=== PATIENT | male | born 1960 | race Caucasian/White ===

== ENCOUNTER 2019-07-11 16:17 | Inpatient (IN) | payer SELFPAY ==
[2019-07-11] MEDS ORDERED: IPRATROPIUM/ALBUTEROL 0.5-2.5 MG/3 ML AMPUL NEB ONE (16:40)
[2019-07-11] MEDS ORDERED: NORMAL SALINE 1000 ML 1,000 ML IV ONE (16:47)
[2019-07-11 17:06] LABS: ABSOLUTE BASOPHILS # (AUTO) 0.1 10^3/uL (0.0-0.2); ABSOLUTE EOSINOPHILS # (AUTO) 0.1 10^3/uL (0.0-0.6); ABSOLUTE LYMPHOCYTES (AUTO) 1.6 10^3/uL (0.5-4.7); ABSOLUTE MONOCYTES (AUTO) 0.7 10^3/uL (0.1-1.4); ABSOLUTE NEUT (AUTO) 9.8 10^3/uL (1.7-8.2); BASOPHILS % (AUTO) 0.5 % (0-2); EOSINOPHILS % (AUTO) 0.7 % (0-6); HEMATOCRIT 29.8 % (37.9-51.0); HEMOGLOBIN 9.6 g/dL (13.5-17.0); LYMPHOCYTES % (AUTO) 12.9 % (13-45); MEAN CORPUSCULAR HEMOGLOBIN 27.8 pg (27.0-33.4); MEAN CORPUSCULAR HGB CONC 32.2 g/dL (32.0-36.0); MEAN CORPUSCULAR VOLUME 87 fl (80-97); MONOCYTES % (AUTO) 5.4 % (3-13); PLATELET COUNT 260 10^3/uL (150-450); RED BLOOD COUNT 3.44 10^6/uL (4.35-5.55); RED CELL DISTRIBUTION WIDTH 18.2 % (11.5-14.0); SEGMENTED NEUTROPHILS % (AUTO) 80.5 % (42-78); TOTAL CELLS COUNTED % (AUTO) 100 %; WHITE BLOOD COUNT 12.1 10^3/uL (4.0-10.5)
[2019-07-11] MEDS ORDERED: CEFEPIME 2 GM/D5W RTU 2 GM/50 ML RTUPB IV ONE (17:07)
[2019-07-11] MEDS ORDERED: DEXTROSE 5%-WATER 250 ML with NOREPINEPHRINE BITARTRATE 4 MG IV PRN ×2 (17:07)
[2019-07-11] MEDS ORDERED: VANCOMYCIN HCL INJ 1000 MG VIAL IV ONE (17:07)
[2019-07-11 17:19] LABS: ARTERIAL BLOOD BASE EXCESS -2.3 mmol/L; ARTERIAL BLOOD FIO2 85%; ARTERIAL BLOOD H2CO3 1.31 mmol/L (1.05-1.35); ARTERIAL BLOOD HCO3 23.3 mmol/L (20-24); ARTERIAL BLOOD O2 SATURATION 83.1 % (94-98); ARTERIAL BLOOD PCO2 43.6 mmHg (35-45); ARTERIAL BLOOD PH 7.35 (7.35-7.45); ARTERIAL BLOOD PO2 49.7 mmHg (80-100); ARTERIAL BLOOD TOTAL CO2 24.7 mmol/L (23-27)
[2019-07-11 17:21] LABS: INTERNATIONAL RATION (INR) 0.98
[2019-07-11] MEDS ORDERED: LIDOCAINE 1% INJ-PF (10 MG/ML) 30 ML SDV ONE (17:23)
[2019-07-11] MEDS ORDERED: LIDOCAINE 1% INJ (10 MG/ML) 10 ML MDV INJ ONE (17:31)
--- NOTE | 2019-07-11 17:33 | RADIOLOGY REPORT (SQ) ---
EXAM DESCRIPTION: CHEST SINGLE VIEW COMPLETED DATE/TIME: 07/11/2019 4:59 pm REASON FOR STUDY: hypoxia COMPARISON: None. EXAM PARAMETERS: NUMBER OF VIEWS: One view. TECHNIQUE: Single frontal radiographic view of the chest acquired. RADIATION DOSE: NA LIMITATIONS: None. FINDINGS: LUNGS AND PLEURA: There is increased opacification in the left base. Cannot exclude mild pulmonary edema. MEDIASTINUM AND HILAR STRUCTURES: No masses. Contour normal. HEART AND VASCULAR STRUCTURES: Heart size is borderline. BONES: No acute findings. HARDWARE: None in the chest. OTHER: No other significant finding. IMPRESSION: Borderline cardiomegaly. Cannot exclude mild pulmonary edema. Likely left lower lobe p neumonia. TECHNICAL DOCUMENTATION: JOB ID: [id number] [employer]- All Rights Reserved Reading location - IP/workstation name: [email or web address]
[2019-07-11 17:34] LABS: ALBUMIN 3.1 g/dL (3.5-5.0); ALKALINE PHOSPHATASE 105 U/L (38-126); ANION GAP 9 (5-19); ASPARTATE AMINO TRANSFERASE 64 U/L (17-59); BILIRUBIN,DIRECT 0.3 mg/dL (0.0-0.4); BILIRUBIN,TOTAL 0.4 mg/dL (0.2-1.3); BLOOD UREA NITROGEN 54 mg/dL (7-20); CALCIUM 8.4 mg/dL (8.4-10.2); CARBON DIOXIDE 26 mmol/L (22-30); CHLORIDE 102 mmol/L (98-107); GLUCOSE 128 mg/dL (75-110); POTASSIUM 5.5 mmol/L (3.6-5.0)
[2019-07-11] MEDS ORDERED: ATROPINE SULFATE INJ 1 MG/1 ML VIAL IV ONE (17:37)
[2019-07-11 17:38] LABS: DIGOXIN < 0.40 ng/mL (0.8-2.0)
--- NOTE | 2019-07-11 17:43 | Operative Report ---
Nonrecallable Operative Report DATE OF SURGERY: 07/11/19 PREOPERATIVE DIAGNOSIS: need IV access. patient on Eliquis POSTOPERATIVE DIAGNOSIS: same OPERATION: right common femoral vein triple lumen catheter SURGEON: KALE ALLISON ANESTHESIA: Local TISSUE REMOVED OR ALTERED: n/a COMPLICATIONS: none ESTIMATED BLOOD LOSS: < 2 mL INTRAOPERATIVE FINDINGS: as above PROCEDURE: see dictation
--- NOTE | 2019-07-11 17:44 | ER Document Report ---
ED General - General Chief Complaint: Respiratory Distress Stated Complaint: WEAKNESS Time Seen by Provider: 07/11/19 16:32 TRAVEL OUTSIDE OF THE [place] IN LAST 30 DAYS: No - HPI Notes: Patient is a 4-year-old male brought into the emergency department for evaluation by daughter. She has been his primary caregiver after he was discharged from the hospital in [place]. Evidently he was admitted for MRSA bacteremia. He was in the [facility], then moved back to [place] with her on Thursday. He has had decreased levels of interaction. He has been having shaking all over, similar episodes he has had in the past while hospitalized, but more frequently. She states he has been taking his medications as prescribed. He does not believe he has taken any extra. He has had a markedly diminished appetite, diminished oral intake. He has been coughing somewhat. - Related Data Allergies/Adverse Reactions: No Known Allergies Allergy (Unverified 12/15/14 09:07) Home Medications: Percocet, albuterol, amiodarone, Eliquis, Symbicort, chlorpromazine, digoxin, docusate, ferrous sulfate, folate, Neurontin, losartan, multivitamin, Protonix, thiamine, venlafaxine, verapamil Past Medical History - General Information source: Patient, Relative, Outside Facility Records - Social History Smoking Status: Current Every Day Smoker Frequency of alcohol use: Former drinker Family History: Reviewed & Not Pertinent Patient has suicidal ideation: No Patient has homicidal ideation: No - Past Medical History Cardiac Medical History: Reports: Hx Atrial Fibrillation, Hx Hypertension Pulmonary Medical History: Reports: Hx COPD Renal/ Medical History: Denies: Hx Peritoneal Dialysis Past Surgical History: Reports: Hx Orthopedic Surgery - Immunizations Hx Diphtheria, Pertussis, Tetanus Vaccination: Yes Review of Systems - Review of Systems Constitutional: See HPI EENT: No symptoms reported Cardiovascular: No symptoms reported Respiratory: No symptoms reported Gastrointestinal: No symptoms reported Genitourinary: No symptoms reported Musculoskeletal: No symptoms reported Skin: No symptoms reported Neurological/Psychological: No symptoms reported Physical Exam - Vital signs Vitals: Resp Pulse Ox 20 80 L 07/11/19 16:33 07/11/19 16:33 - Notes Notes: Is a 58-year-old male who appears older than his stated age in a mild amount of distress. He is mildly tachypneic, BiPAP in place. Has never spiked any traumatic. Pupils are equal round, reactive to light. Oral mucosa is moist. Neck is supple without meningismus. Heart is irregularly irregular and markedly bradycardic. Lungs reveal moderate expiratory wheezing with prolonged expiratory phase. Abdomen soft, nontender, normal active bowel sounds. Skin is cool and mildly diaphoretic. Extremities without cyanosis or clubbing. No posterior calf tenderness. Patient will open eyes to painful stimuli, will begrudgingly follow commands. He actively resists me opening his eyes for examination. Course - Re-evaluation Re-evalutation: 07/11/19 17:43 Patient presents emergency department for evaluation. On arrival he was hypotensive, bradycardic. He would not answer my questions. He was markedly hypoxic, BiPAP was placed. IV fluids, laboratory investigations ordered. Given his MRSA bacteremia history as well as hypertension, I was concerned about the possibility of a significant sepsis event. ABG was ordered. He was given IV cefepime, vancomycin. Multiple large-bore IVs were placed, decision was made to place central line for possible pressor therapy. Given his Eliquis therapy, I did not feel comfortable placing central line in this patient in the IJ or subclavian region. I did contact surgery. Dr. Alvarez came to the department and, in fact placed a femoral line. Patient is currently normotensive. His heart rate remains between 35 and 50, but his mental status has improved. He is following directions. We will continue to monitor. 07/11/19 18:18 Patient remains significantly bradycardic. He is improving in regards to his mental status. I am not inclined to further medicated in regards to this. Certainly his digoxin level is low. As his amiodarone wears off, I suspect that this will improve. He is currently not on pressors and his blood pressure is 104/67. He is been treated with cefepime and vancomycin. I spoke with , will admit the patient to the unit. - Vital Signs Vital signs: Temp Pulse Resp BP Pulse Ox 16 104/64 92 07/11/19 18:06 07/11/19 18:06 07/11/19 18:06 - Laboratory Result Diagrams: 07/11/19 16:49 07/11/19 16:49 Laboratory results interpreted by me: 08/19/19 08/19/19 08/19/19 16:49 16:49 16:49 WBC 12.1 H RBC 3.44 L Hgb 9.6 L Hct 29.8 L RDW 18.2 H Seg Neutrophils % 80.5 H Lymphocytes % 12.9 L Absolute Neutrophils 9.8 H ABG pO2 49.7 L ABG O2 Saturation 83.1 L Sodium 136.5 L Potassium 5.5 H BUN 54 H Creatinine 2.72 H Est GFR ( Amer) 29 L Est GFR (Non-Af Amer) 24 L Glucose 128 H AST 64 H Total Protein 6.0 L Albumin 3.1 L Digoxin < 0.40 L - Diagnostic Test Radiology reviewed: Reports reviewed Radiology results interpreted by me: 07/11/19 17:45 Chest X-Ray 07/11/19 16:39 IMPRESSION: Borderline cardiomegaly. Cannot exclude mild pulmonary edema. Likely left lower lobe pneumonia. - EKG Interpretation by Me Additional EKG results interpreted by me: 07/11/19 17:45 Atrial fibrillation with a rate of 42 bpm. Normal axis and intervals, nonspecific ST changes, but no acute changes concerning for ischemia or infarction. No old studies available for comparison. Critical Care Note - Critical Care Note Total time excluding time spent on procedures (mins): 30 Discharge - Discharge Clinical Impression: Hyperkalemia, Bradycardia, Hypoxemia Pneumonia Qualifiers: Pneumonia type: due to unspecified organism Laterality: unspecified laterality Sepsis Qualifiers: Sepsis type: sepsis due to unspecified organism Sepsis acute organ dysfunction status: unspecified Qualified Code(s): A41.9 - Sepsis, unspecified organism Condition: Stable Disposition: ADMITTED INPATIENT Admitting Provider: Dr. Moreno Unit Admitted: ICU
--- NOTE | 2019-07-11 17:45 | Progress Note ---
Provider Note Provider Note: S: tachypneim male on Eliquis in need if access for meds and fluids O; Tachypnein chest: CTA Heart: RRR Abdomen: soft A/ Tachypnea Need IV access P/ Placement of CVL via right common femoral vein under local. Consent obtained.
--- NOTE | 2019-07-11 17:55 | OPERATIVE REPORT E ---
Operative Report NAME: RUMA VAUGHAN : 1960 AGE: 58Y DATE OF SURGERY: 07/11/2019 ROOM: PREOPERATIVE DIAGNOSIS: NEED INTRAVENOUS ACCESS. POSTOPERATIVE DIAGNOSIS: NEED INTRAVENOUS ACCESS. PATIENT ON ELIQUIS. OPERATION: PLACEMENT OF RIGHT COMMON FEMORAL VEIN TRIPLE LUMEN CENTRAL VENOUS LINE. SURGEON: KALE ALLISON M.D. ANESTHESIA: General mask with 1% lidocaine with epinephrine. COMPLICATIONS: None. INDICATION/FINDINGS: This is a 58-year-old male with a history of severe COPD, in need of IV access for administration of medications and drugs. The patient is currently on Eliquis. Decision was made to place a right common femoral vein central venous line because of the use of Eliquis. PROCEDURE: The procedure was done in the emergency room. The patient was placed in supine position. The right groin was shaved and prepped and draped in the usual sterile fashion. The area just medial to the right common femoral artery was prepared, infiltrated with lidocaine. The femoral vein was then punctured with a 16 gauge needle without difficulty, followed by a guidewire inserted through the vein. The needle was removed. The insertion point of the guidewire was enlarged with a #11 blade and tissue dilator which was then removed. The triple lumen catheter was inserted over the guidewire in the common femoral vein and iliac vein without difficulty. The guidewire was removed. The port was then aspirated and flushed with normal saline without difficulty. The catheter was secured to the skin with silk sutures. Sterile dressings were applied. The patient tolerated the procedure well. DICTATING PHYSICIAN: KALE ALLISON M.D. [id number] PHY#: [id number] ID: [id number] JOB#: [id number] ACCT: [id number] cc:KALE ALLISON M.D. > MTDD
[2019-07-11 18:32] LABS: APPEARANCE,URINE CLEAR; BILIRUBIN,URINE NEGATIVE (NEGATIVE); COLOR,URINE YELLOW; GLUCOSE, URINE NEGATIVE (NEGATIVE); KETONES,URINE NEGATIVE (NEGATIVE); LEUKOCYTE ESTERASE,URINE NEGATIVE (NEGATIVE); NITRITE,URINE NEGATIVE (NEGATIVE); PROTEIN,URINE NEGATIVE (NEGATIVE); URINE SPECIFIC GRAVITY 1.019; UROBILINOGEN,URINE NEGATIVE mg/dL (<2.0)
[2019-07-11 19:47] LABS: ARTERIAL BLOOD BASE EXCESS -7.2 mmol/L; ARTERIAL BLOOD HCO3 19.9 mmol/L (20-24); ARTERIAL BLOOD PCO2 46.4 mmHg (35-45); ARTERIAL BLOOD PH 7.25 (7.35-7.45); ARTERIAL BLOOD PO2 69.2 mmHg (80-100); ARTERIAL BLOOD TOTAL CO2 21.3 mmol/L (23-27)
[2019-07-11 19:49] LABS: ARTERIAL BLOOD FIO2 100%
[2019-07-11] MEDS ORDERED: GLUCAGON,HUMAN RECOMB 1 MG INJ SUBCUT PRN (20:04)
[2019-07-11] MEDS ORDERED: CALCIUM GLUCONATE 1,000 MG in DEXTROSE 5%-WATER 50 ML IV ONE (20:04)
[2019-07-11] MEDS ORDERED: DEXTROSE 40% GEL 15 GM TUBE PO PRN ×2 (20:04)
[2019-07-11] MEDS ORDERED: DEXTROSE 50%-WATER 25 GM/50 ML DISP.SYRIN IV PRN ×2 (20:04)
[2019-07-11] MEDS ORDERED: ACETAMINOPHEN 325 MG TABLET PO PRN (20:04)
[2019-07-11] MEDS ORDERED: ALBUTEROL SULFATE 0.083% NEB 2.5 MG/3 ML AMPUL NEB PRN (20:04)
[2019-07-11] MEDS ORDERED: VANCOMYCIN HCL 0 MG in DEXTROSE 5%-WATER 250 ML IV NR (20:15)
--- NOTE | 2019-07-11 20:15 | PDOC H&P ---
History of Present Illness Admission Date/PCP: 07/11/19 18:24 Patient complains of: Lethargy and shortness of breath History of Present Illness: RUMA VAUGHAN is a 58 year old male who was brought into the ER by his daughter after being discharged from hospital in [place] about 3 days ago presented to the ER complaining of feeling generalized weakness and some shortness of breath. Patient is on BiPAP when I saw him in the ED. Patient unable to give me a good history as he is very lethargic and somnolent. Spoke with daughter at bedside, who tells me that her father was admitted at the [facility] in [place], [place], for the last 2 months. States that he had an MRSA bacteremia for which they were treating him. States that it father lives in [place] but he was discharged from the hospital 3 days ago on 08 July and then came down to live with her in [place]. States that at home he was walking around and going about doing his daily chores but then at the hospital he was noted to have these shakings of his arms and legs which were not considered seizures. She had asked the hospital what it is but they were unable to tell him. States that last night he was also having slight tremors of his arms and legs. And then this morning he fell twice and his daughter does not know why. Then he was also sitting the chair again after taking all his morning medication when he started to fall again and this is when she got worried and decided to bring him to the ER for evaluation. Per daughter he never had LOC or hit his head. He has not had much complaint to the daughter in the last 3 days that has been around but gradually has been having decreased appetite and developing some shortness of breath. Per daughter he has been taking medications that was given to him after discharge from the hospital-he is also written with his pain on the pill bottle, he attempted taking a day- unfortunately he has 2 separate pill bottles of losartan and they both say once a day so I am not clear if he is taking them both are not. Also his Coreg bottle is written to take 3 times a day although the prescription itself states it is to be taken twice a day. In the ED he was found to have a white count of 12,000, low hemoglobin, oxygen saturation of 80% and a low blood pressure of systolic 79. Chest x-ray showing suspected pneumonia. Hospitalist were consulted for admission. Past Medical History Cardiac Medical History: Reports: Atrial Fibrillation, Hypertension Pulmonary Medical History: Reports: Chronic Obstructive Pulmonary Disease (COPD) Past Surgical History Past Surgical History: Reports: Orthopedic Surgery Social History Smoking Status: Current Every Day Smoker - Advance Directive Resuscitation Status: Full Code Family History Family History: Reviewed & Not Pertinent Parental Family History Reviewed: Yes Children Family History Reviewed: Unknown Sibling(s) Family History Reviewed.: Unknown Medication/Allergy Allergies/Adverse Reactions: No Known Allergies Allergy (Unverified 12/15/14 09:07) Review of Systems All systems: reviewed and no additional remarkable complaints except as stated Constitutional: ABSENT: chills, fever(s) Eyes: ABSENT: visual disturbances Ears: ABSENT: hearing changes Nose, Mouth, and Throat: ABSENT: mouth pain Cardiovascular: ABSENT: chest pain, edema Respiratory: PRESENT: dyspnea. ABSENT: cough Gastrointestinal: ABSENT: abdominal pain, nausea, vomiting Neurological: PRESENT: frequent falls. ABSENT: focal weakness Endocrine: ABSENT: polyuria Physical Exam Vital Signs: Temp Pulse Resp BP Pulse Ox 16 104/64 92 07/11/19 18:06 07/11/19 18:06 07/11/19 18:06 Intake & Output 07/10/19 07/11/19 07/12/19 06:59 06:59 06:59 Intake Total 1050 Balance 1050 Weight 130 lb 4.338 oz General appearance: PRESENT: mild distress Head exam: PRESENT: atraumatic, normocephalic Eye exam: PRESENT: EOMI. ABSENT: conjunctival injection, scleral icterus Mouth exam: PRESENT: other - On BiPAP and unable to evaluate Neck exam: ABSENT: tracheal deviation Respiratory exam: PRESENT: accessory muscle use, decreased breath sounds - Decreased breath sounds bilaterally mostly of the left, rhonchi, tachypnea Cardiovascular exam: PRESENT: +S1, +S2 Pulses: PRESENT: +2 pedal pulses bilateral GI/Abdominal exam: PRESENT: normal bowel sounds, soft. ABSENT: tenderness Extremities exam: ABSENT: pedal edema Neurological exam: PRESENT: other - Somnolent-but arousable-does answer questions but then closes eyes again. Follow commands for short time-unable to evaluate cranial nerve due to his BiPAP. Skin exam: PRESENT: dry, warm Results Laboratory Results: 07/11/19 16:49 07/11/19 16:49 08/07/11/19 07/11/19 16:49 16:49 16:49 WBC 12.1 H RBC 3.44 L Hgb 9.6 L Hct 29.8 L MCV 87 MCH 27.8 MCHC 32.2 RDW 18.2 H Plt Count 260 Seg Neutrophils % 80.5 H Lymphocytes % 12.9 L Monocytes % 5.4 Eosinophils % 0.7 Basophils % 0.5 Absolute Neutrophils 9.8 H Absolute Lymphocytes 1.6 Absolute Monocytes 0.7 Absolute Eosinophils 0.1 Absolute Basophils 0.1 Carbonic Acid HCO3/H2CO3 Ratio ABG pH ABG pCO2 ABG pO2 ABG HCO3 ABG O2 Saturation ABG Base Excess FiO2 Sodium 136.5 L Potassium 5.5 H Chloride 102 Carbon Dioxide 26 Anion Gap 9 BUN 54 H Creatinine 2.72 H Est GFR ( Amer) 29 L Est GFR (Non-Af Amer) 24 L Glucose 128 H Lactic Acid 1.2 Calcium 8.4 Total Bilirubin 0.4 AST 64 H Alkaline Phosphatase 105 Total Protein 6.0 L Albumin 3.1 L Urine Color Urine Appearance Urine pH Ur Specific [place] Urine Protein Urine Glucose (UA) Urine Ketones Urine Blood Urine Nitrite Ur Leukocyte Esterase Urine WBC (Auto) Urine RBC (Auto) 07/11/19 07/11/19 16:49 17:54 WBC RBC Hgb Hct MCV MCH MCHC RDW Plt Count Seg Neutrophils % Lymphocytes % Monocytes % Eosinophils % Basophils % Absolute Neutrophils Absolute Lymphocytes Absolute Monocytes Absolute Eosinophils Absolute Basophils Carbonic Acid 1.31 HCO3/H2CO3 Ratio 17:1 ABG pH 7.35 ABG pCO2 43.6 ABG pO2 49.7 L ABG HCO3 23.3 ABG O2 Saturation 83.1 L ABG Base Excess -2.3 FiO2 85% Sodium Potassium Chloride Carbon Dioxide Anion Gap BUN Creatinine Est GFR ( Amer) Est GFR (Non-Af Amer) Glucose Lactic Acid Calcium Total Bilirubin AST Alkaline Phosphatase Total Protein Albumin Urine Color YELLOW Urine Appearance CLEAR Urine pH 5.0 Ur Specific [place] 1.019 Urine Protein NEGATIVE Urine Glucose (UA) NEGATIVE Urine Ketones NEGATIVE Urine Blood NEGATIVE Urine Nitrite NEGATIVE Ur Leukocyte Esterase NEGATIVE Urine WBC (Auto) 1 Urine RBC (Auto) 0 07/11/19 16:49 Troponin I 0.012 Impressions: Chest X-Ray 07/11/19 16:39 IMPRESSION: Borderline cardiomegaly. Cannot exclude mild pulmonary edema. Likely left lower lobe pneumonia. Assessment and Plan - Diagnosis (1) Sepsis Qualifiers: Sepsis type: sepsis due to unspecified organism Sepsis acute organ dysfunction status: unspecified Qualified Code(s): A41.9 - Sepsis, unspecified organism Is this a current diagnosis for this admission?: Yes (2) Acute respiratory failure with hypoxia Is this a current diagnosis for this admission?: Yes (3) Hypertension Is this a current diagnosis for this admission?: Yes (4) GERD (gastroesophageal reflux disease) Is this a current diagnosis for this admission?: Yes (5) Bradycardia Is this a current diagnosis for this admission?: Yes (6) Pneumonia Qualifiers: Pneumonia type: due to unspecified organism Laterality: unspecified laterality Is this a current diagnosis for this admission?: Yes (7) CECILY (acute kidney injury) Is this a current diagnosis for this admission?: Yes - Time Time Spent with patient: 35 or more minutes - Inpatient Certification Based on my medical assessment, after consideration of the patient's comorbidities, presenting symptoms, or acuity I expect that the services needed warrant INPATIENT care.: Yes I certify that my determination is in accordance with my understanding of Medic are's requirements for reasonable and necessary INPATIENT services [42 CFR 412.3e].: Yes Medical Necessity: Failure to Improve With Outpatient Therapy, Significant Comorbidiites Make Outpatient Treatment Too Risky, Need For IV Fluids, Need For Continuous Telemetry Monitoring, Need for IV Antibiotics, Risk of Complication if Not Cared For in Hospital - Plan Summary Plan Summary: Acute respiratory failure with hypoxia-his oxygen saturation on arrival was 80% per chart. He was placed on oxygen and then later moved on to BiPAP. His saturations are still low in the 90 to 92%. He has decreased breath sounds bila terally. Possibly secondary to pneumonia versus underlying COPD. ABG upon arrival to the ED showed pH of 7.35, PCO2 of 43, PO2 49, bicarb of 23 and a oxygen saturation of 83%. Continue with BiPAP for now. Start him on nebulizer treatments and aggressive pulmonary hygiene. We will start him on some IV Solu- Medrol 60 every 8h. Sepsis secondary to most likely pneumonia. Chest x-ray completed in the ED is showing mild pulmonary edema with the possibility of left lower lobe pneumonia. He received 1 dose of cefepime and Vanco in the ED. We will continue with cefepime and vancomycin for now. Blood cultures have been sent and pending. For text Acute kidney injury-creatinine is elevated. We will give him some gentle hydration with IV fluids. I am not sure if he has CKD are not since he lives in [place]. We will try to get medical records from his hospital. Bradycardia-his heart rate is in the 40s-unclear etiology-but he is on Coreg at home and his bottle states it is 3 times a day which is written in hand by patient but the direction of the bottle states twice a day. Daughter states that he has been taking it as it is written by patient with his own hand and most likely 3 times a day. I am going to give him 1 dose of glucagon and calcium gluconate for now. Admit to the ICU for respiratory failure and very close observation. I spoke with daughter at bedside and I told her that overall prognosis is poor at this time until he improves.
--- NOTE | 2019-07-11 20:41 | EKG REPORT ---
SEVERITY:- ABNORMAL ECG - ATRIAL FIBRILLATION CONSIDER ANTERIOR INFARCT : Confirmed by: Dee Dee Farias MD 11-Jul-2019 20:41:18
[2019-07-11] MEDS ORDERED: GLUCAGON,HUMAN RECOMB 1 MG INJ IV ONE (21:00)
[2019-07-11] MEDS ORDERED: CALCIUM GLUCONATE 1000 MG/10 ML INJ IV ONE (21:00)
[2019-07-11] MEDS: NORMAL SALINE 1000 ML 1,000 ML IV PRN (21:11)
[2019-07-11] MEDS ORDERED: NOREPINEPHRINE BITARTRATE INJ/PF 4 MG/4 ML SDV IV ONE (21:39)
[2019-07-11] MEDS: FAMOTIDINE INJ/PF 20 MG/2 ML SDV IV SCH (22:02)
[2019-07-11] MEDS: HEPARIN SOD (PORCINE) 5,000 UNIT/ML 1 ML VIAL SUBCUT SCH (22:02)
[2019-07-12] MEDS ORDERED: ACETAMINOPHEN 650 MG SUPP.RECT PR ONE (01:41)
[2019-07-12] MEDS: NORMAL SALINE 1000 ML 1,000 ML IV PRN ×2 (01:43→13:45)
[2019-07-12] MEDS ORDERED: ACETAMINOPHEN 650 MG SUPP.RECT PR PRN (01:54)
[2019-07-12] MEDS ORDERED: DEXTROSE 5%-WATER 250 ML with NOREPINEPHRINE BITARTRATE 4 MG IV PRN ×2 (01:54)
[2019-07-12 03:40] LABS: ARTERIAL BLOOD BASE EXCESS -4.7 mmol/L; ARTERIAL BLOOD H2CO3 1.28 mmol/L (1.05-1.35); ARTERIAL BLOOD HCO3 21.3 mmol/L (20-24); ARTERIAL BLOOD PCO2 42.4 mmHg (35-45); ARTERIAL BLOOD PH 7.32 (7.35-7.45); ARTERIAL BLOOD PO2 64.7 mmHg (80-100); ARTERIAL BLOOD TOTAL CO2 22.6 mmol/L (23-27)
[2019-07-12 03:40] LABS: ABSOLUTE LYMPHOCYTES (AUTO) 0.6 10^3/uL (0.5-4.7); ABSOLUTE MONOCYTES (AUTO) 0.2 10^3/uL (0.1-1.4); ABSOLUTE NEUT (AUTO) 3.1 10^3/uL (1.7-8.2); BASOPHILS % (AUTO) 0.3 % (0-2); EOSINOPHILS % (AUTO) 0.5 % (0-6); HEMATOCRIT 34.3 % (37.9-51.0); HEMOGLOBIN 11.1 g/dL (13.5-17.0); LYMPHOCYTES % (AUTO) 14.6 % (13-45); MEAN CORPUSCULAR HEMOGLOBIN 27.7 pg (27.0-33.4); MEAN CORPUSCULAR HGB CONC 32.2 g/dL (32.0-36.0); MEAN CORPUSCULAR VOLUME 86 fl (80-97); MONOCYTES % (AUTO) 4.9 % (3-13); PLATELET COUNT 292 10^3/uL (150-450); RED CELL DISTRIBUTION WIDTH 18.4 % (11.5-14.0); SEGMENTED NEUTROPHILS % (AUTO) 79.7 % (42-78); TOTAL CELLS COUNTED % (AUTO) 100 %; WHITE BLOOD COUNT 3.9 10^3/uL (4.0-10.5)
[2019-07-12 03:41] LABS: ARTERIAL BLOOD FIO2 80%
[2019-07-12] MEDS: HEPARIN SOD (PORCINE) 5,000 UNIT/ML 1 ML VIAL SUBCUT SCH ×2 (05:18→13:45)
[2019-07-12 05:43] LABS: ANION GAP 7 (5-19); BLOOD UREA NITROGEN 42 mg/dL (7-20); CALCIUM 8.1 mg/dL (8.4-10.2); CARBON DIOXIDE 22 mmol/L (22-30); CHLORIDE 107 mmol/L (98-107); GLUCOSE 92 mg/dL (75-110); POTASSIUM 4.9 mmol/L (3.6-5.0)
[2019-07-12] MEDS: IPRATROPIUM/ALBUTEROL 0.5-2.5 MG/3 ML AMPUL NEB SCH ×4 (08:12→19:50)
--- NOTE | 2019-07-12 08:34 | RADIOLOGY REPORT (SQ) ---
EXAM DESCRIPTION: CHEST SINGLE VIEW COMPLETED DATE/TIME: 07/12/2019 8:12 am REASON FOR STUDY: resp failure, pneumonia COMPARISON: 07/11/2019 NUMBER OF VIEWS: One view. TECHNIQUE: Single frontal radiographic image of the chest acquired. LIMITATIONS: None. FINDINGS: LUNGS AND PLEURA: Stable appearance. MEDIASTINUM AND HILAR STRUCTURES: Stable heart size and mediastinal structures. HEART AND VASCULAR STRUCTURES: Stable appearance. BONES: No acute findings. HARDWARE: None in the chest. OTHER: No other significant finding. IMPRESSION: STABLE APPEARANCE OF THE CHEST. TECHNICAL DOCUMENTATION: JOB ID: [id number] [employer]- All Rights Reserved Reading location - IP/workstation name: [email or web address]
[2019-07-12] MEDS: FAMOTIDINE INJ/PF 20 MG/2 ML SDV IV SCH (09:46)
--- NOTE | 2019-07-12 10:12 | EKG REPORT ---
SEVERITY:- ABNORMAL ECG - SINUS RHYTHM CONSIDER ANTEROSEPTAL INFARCT NONSPECIFIC T ABNORMALITIES, LATERAL LEADS BORDERLINE PROLONGED QT INTERVAL : Confirmed by: Dee Dee Farias MD 12-Jul-2019 10:12:08
--- NOTE | 2019-07-12 11:13 | PDOC PROGRESS REPORT ---
Subjective Progress Note for:: 07/12/19 Subjective:: The patient awakens easily. He responds to his name. His daughters at the bedside. He reports that his breathing is comfortable. He remains on BiPAP. Reason For Visit: SEPSIS, RESP FAILURE, PNEUMONIA Physical Exam Vital Signs: Temp Pulse Resp BP Pulse Ox 99.5 F 64 23 H 100/56 L 97 07/12/19 08:00 07/12/19 10:00 07/12/19 10:14 07/12/19 10:14 07/12/19 10:14 Intake & Output 07/11/19 07/12/19 07/13/19 06:59 06:59 06:59 Intake Total 1395 0 Output Total 845 1250 Balance 550 -1250 Weight 70.8 kg General appearance: PRESENT: no acute distress, cooperative, well-developed, other - BiPAP mask in place Head exam: PRESENT: atraumatic, normocephalic Eye exam: PRESENT: conjunctiva pink. ABSENT: scleral icterus Ear exam: PRESENT: normal external ear exam Respiratory exam: PRESENT: symmetrical, unlabored, wheezes - Occasional wheeze on the right. ABSENT: accessory muscle use, rales, rhonchi, tachypnea Cardiovascular exam: PRESENT: RRR, +S1, +S2. ABSENT: diastolic murmur, systolic murmur Pulses: PRESENT: +1 pedal pulses bilateral Vascular exam: PRESENT: other - Both feet are cool to the touch. Palpable dorsalis pedis pulses. Toes are slightly dusky. GI/Abdominal exam: PRESENT: normal bowel sounds, soft. 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 He does know he is in the hospital., CN II-XII grossly intact. ABSENT: alert - He does respond to his name. He does open his eyes. He does give brief answers to questions. Definitely oriented to person., oriented to place, oriented to time Psychiatric exam: PRESENT: flat affect. ABSENT: agitated, anxious Focused psych exam: ABSENT: delusional, restlessness Skin exam: PRESENT: dry, normal color - Other than feet, warm, other - Toes as above Results Laboratory Results: 07/12/19 03:18 07/12/19 03:18 07/11/19 07/11/19 07/11/19 16:49 16:49 16:49 WBC 12.1 H RBC 3.44 L Hgb 9.6 L Hct 29.8 L MCV 87 MCH 27.8 MCHC 32.2 RDW 18.2 H Plt Count 260 Seg Neutrophils % 80.5 H Lymphocytes % 12.9 L Monocytes % 5.4 Eosinophils % 0.7 Basophils % 0.5 Absolute Neutrophils 9.8 H Absolute Lymphocytes 1.6 Absolute Monocytes 0.7 Absolute Eosinophils 0.1 Absolute Basophils 0.1 Carbonic Acid HCO3/H2CO3 Ratio ABG pH ABG pCO2 ABG pO2 ABG HCO3 ABG O2 Saturation ABG Base Excess FiO2 Sodium 136.5 L Potassium 5.5 H Chloride 102 Carbon Dioxide 26 Anion Gap 9 BUN 54 H Creatinine 2.72 H Est GFR ( Amer) 29 L Est GFR (Non-Af Amer) 24 L Glucose 128 H Lactic Acid 1.2 Calcium 8.4 Total Bilirubin 0.4 AST 64 H Alkaline Phosphatase 105 Total Protein 6.0 L Albumin 3.1 L Urine Color Urine Appearance Urine pH Ur Specific [place] Urine Protein Urine Glucose (UA) Urine Ketones Urine Blood Urine Nitrite Ur Leukocyte Esterase Urine WBC (Auto) Urine RBC (Auto) 07/11/19 07/11/19 07/11/19 16:49 17:54 19:30 WBC RBC Hgb Hct MCV MCH MCHC RDW Plt Count Seg Neutrophils % Lymphocytes % Monocytes % Eosinophils % Basophils % Absolute Neutrophils Absolute Lymphocytes Absolute Monocytes Absolute Eosinophils Absolute Basophils Carbonic Acid 1.31 1.40 H HCO3/H2CO3 Ratio 17:1 14:1 ABG pH 7.35 7.25 L ABG pCO2 43.6 46.4 H ABG pO2 49.7 L 69.2 L ABG HCO3 23.3 19.9 L ABG O2 Saturation 83.1 L 91.0 L ABG Base Excess -2.3 -7.2 FiO2 85% 100% Sodium Potassium Chloride Carbon Dioxide Anion Gap BUN Creatinine Est GFR ( Amer) Est GFR (Non-Af Amer) Glucose Lactic Acid Calcium Total Bilirubin AST Alkaline Phosphatase Total Protein Albumin Urine Color YELLOW Urine Appearance CLEAR Urine pH 5.0 Ur Specific [place] 1.019 Urine Protein NEGATIVE Urine Glucose (UA) NEGATIVE Urine Ketones NEGATIVE Urine Blood NEGATIVE Urine Nitrite NEGATIVE Ur Leukocyte Esterase NEGATIVE Urine WBC (Auto) 1 Urine RBC (Auto) 0 07/12/19 07/12/19 07/12/19 03:18 03:18 03:25 WBC 3.9 L RBC 4.00 L Hgb 11.1 L Hct 34.3 L MCV 86 MCH 27.7 MCHC 32.2 RDW 18.4 H Plt Count 292 Seg Neutrophils % 79.7 H Lymphocytes % 14.6 Monocytes % 4.9 Eosinophils % 0.5 Basophils % 0.3 Absolute Neutrophils 3.1 Absolute Lymphocytes 0.6 Absolute Monocytes 0.2 Absolute Eosinophils 0.0 Absolute Basophils 0.0 Carbonic Acid 1.28 HCO3/H2CO3 Ratio 16:1 ABG pH 7.32 L ABG pCO2 42.4 ABG pO2 64.7 L ABG HCO3 21.3 ABG O2 Saturation 91.0 L ABG Base Excess -4.7 FiO2 80% Sodium 135.6 L Potassium 4.9 Chloride 107 Carbon Dioxide 22 Anion Gap 7 BUN 42 H Creatinine 1.66 H Est GFR ( Amer) 51 L Est GFR (Non-Af Amer) 42 L Glucose 92 Lactic Acid Calcium 8.1 L Total Bilirubin AST Alkaline Phosphatase Total Protein Albumin Urine Color Urine Appearance Urine pH Ur Specific [place] Urine Protein Urine Glucose (UA) Urine Ketones Urine Blood Urine Nitrite Ur Leukocyte Esterase Urine WBC (Auto) Urine RBC (Auto) 07/11/19 07/11/19 16:49 20:55 Troponin I 0.012 < 0.012 Impressions: Chest X-Ray 07/12/19 06:00 IMPRESSION: STABLE APPEARANCE OF THE CHEST. Assessment and Plan - Diagnosis (1) Sepsis Qualifiers: Sepsis type: sepsis due to unspecified organism Sepsis acute organ dysfunction status: with acute organ dysfunction Severe sepsis acute organ dysfunction type: acute renal failure Acute renal failure type: with acute tubular necrosis Is this a current diagnosis for this admission?: Yes Plan: 07/12/2019-the patient met sepsis criteria due to hypoxemia and acute kidney injury. He exhibited increased work of breathing requiring BiPAP and oxygen supplementation. Sepsis most likely secondary to left lower lobe pneumonia. With IV fluids and antibiotic therapy the sepsis has resolved. (2) Acute respiratory failure with hypoxia Is this a current diagnosis for this admission?: Yes Plan: 07/12/2019-from a discussion with the patient's daughter at bedside today the patient has a history of COPD. He has been on BiPAP continuously since admission. This morning we will attempt high flow nasal cannula. We will apply this for intermittent windows. We will start at 1 hour on in 3 hours off. This will give the patient a chance to eat and take oral medications. We will gradually increase the high flow nasal cannula until the point when patient no longer needs BiPAP. (3) Hypertension Qualifiers: Hypertension type: essential hypertension Qualified Code(s): I10 - Essential (primary) hypertension Is this a current diagnosis for this admission?: Yes Plan: 07/12/2019-the patient is on losartan 100 mg daily. He is also on carvedilol. I am not sure of the exact dose. Currently his blood pressure is too low to resume losartan at the full strength. I will reassess his blood pressure in the morning and consider resuming losartan at a smaller dose. He also took carvedilol prior to this admission. We will need to get updated records and figure out the exact discharge medication regimen that he was on during his hospitalization in [facility] (4) GERD (gastroesophageal reflux disease) Qualifiers: Esophagitis presence: without esophagitis Qualified Code(s): K21.9 - Gastro-esophageal reflux disease without esophagitis Is this a current diagnosis for this admission?: Yes Plan: 07/12/2019-I will resume the patient's Protonix and discontinue the famotidine (5) Bradycardia Is this a current diagnosis for this admission?: Yes Plan: 07/12/2019-bradycardia was secondary to too much carvedilol. The patient was prescribed 1 tablet twice daily and was taking 1 tablet 3 times a day. We will need to get more information regarding the exact dose of carvedilol. I have resumed the amiodarone with a parameter to hold for pulse less than 60. He is also listed as being on digoxin. I will try and get a clear picture of his cardiac medication profile tomorrow. Old records have been requested from the hospital in [place]. (6) Pneumonia Qualifiers: Pneumonia type: due to unspecified organism Laterality: left Lung location: lower lobe of lung Qualified Code(s): J18.1 - Lobar pneumonia, unspecified organism Is this a current diagnosis for this admission?: Yes Plan: 07/12/2019-chest x-ray suggests left lower lobe pneumonia. We will continue the cefepime at this time. White blood cell count dropped precipitously. We will repeat a CBC tomorrow. Leukopenia can be a side effect of some antibiotics. (7) CECILY (acute kidney injury) Is this a current diagnosis for this admission?: Yes Plan: 07/12/2019-serum creatinine was greater than 2.0 on admission. It is down to 1.66. We will continue to follow the renal function. We will also monitor the patient's oral intake of fluids and supplement with IV if needed. (8) Hyperkalemia Is this a current diagnosis for this admission?: Yes Plan: 07/12/2019-the patient's potassium on admission was 5.5. This is likely reflection of the acute kidney injury. His serum potassium is currently normal. We will continue to monitor. - Time Time Spent with patient: 25-34 minutes Medications reviewed and adjusted accordingly: Yes - Plan Summary Plan Summary: The patient's daughter was at the bedside. I was able to speak with her. The patient was hospitalized in [place] for 2 months. Evidently he had a methicillin-resistant staph aureus infection. Is unclear if this was an endocarditis or not. We have requested old records and this should help provide crucial information so that we can establish a treatment plan moving forward.
[2019-07-12] MEDS: OXYCODONE HCL IR 5 MG TABLET PO PRN (14:16)
[2019-07-12] MEDS: CEFEPIME HCL 2 GM in DEXTROSE 5%-WATER 50 ML IV SCH (17:01)
[2019-07-12] MEDS ORDERED: CEFEPIME 2 GM/D5W RTU 2 GM/50 ML RTUPB IV SCH (18:00)
[2019-07-12] MEDS: BUDESONIDE NEB 0.5 MG/2 ML AMPUL NEB SCH (19:50)
[2019-07-12] MEDS: GABAPENTIN 300 MG CAPSULE PO SCH (21:57)
[2019-07-13] MEDS: OXYCODONE HCL IR 5 MG TABLET PO PRN ×4 (02:25→20:42)
[2019-07-13] MEDS: NORMAL SALINE 1000 ML 1,000 ML IV PRN ×2 (03:26→18:29)
[2019-07-13 05:51] LABS: ANION GAP 6 (5-19); BLOOD UREA NITROGEN 21 mg/dL (7-20); CALCIUM 8.3 mg/dL (8.4-10.2); CARBON DIOXIDE 25 mmol/L (22-30); CHLORIDE 108 mmol/L (98-107); GLUCOSE 87 mg/dL (75-110); POTASSIUM 3.8 mmol/L (3.6-5.0)
[2019-07-13 05:53] LABS: ABSOLUTE MONOCYTES (AUTO) 0.6 10^3/uL (0.1-1.4); ABSOLUTE NEUT (AUTO) 6.4 10^3/uL (1.7-8.2); RED CELL DISTRIBUTION WIDTH 18.6 % (11.5-14.0); TOTAL CELLS COUNTED % (AUTO) 100 %
[2019-07-13 06:10] LABS: ABSOLUTE LYMPHOCYTES (AUTO) 1.1 10^3/uL (0.5-4.7); BASOPHILS % (AUTO) 0.4 % (0-2); EOSINOPHILS % (AUTO) 0.5 % (0-6); HEMATOCRIT 29.4 % (37.9-51.0); HEMOGLOBIN 9.9 g/dL (13.5-17.0); LYMPHOCYTES % (AUTO) 13.3 % (13-45); MEAN CORPUSCULAR HEMOGLOBIN 28.7 pg (27.0-33.4); MEAN CORPUSCULAR HGB CONC 33.6 g/dL (32.0-36.0); MEAN CORPUSCULAR VOLUME 85 fl (80-97); MONOCYTES % (AUTO) 7.2 % (3-13); PLATELET COUNT 272 10^3/uL (150-450); RED BLOOD COUNT 3.44 10^6/uL (4.35-5.55); SEGMENTED NEUTROPHILS % (AUTO) 78.6 % (42-78)
[2019-07-13 06:11] LABS: WHITE BLOOD COUNT 8.2 10^3/uL (4.0-10.5)
[2019-07-13] MEDS: PANTOPRAZOLE SODIUM 40 MG TABLET.DR PO SCH (06:27)
[2019-07-13] MEDS: BUDESONIDE NEB 0.5 MG/2 ML AMPUL NEB SCH (08:06)
[2019-07-13] MEDS: IPRATROPIUM/ALBUTEROL 0.5-2.5 MG/3 ML AMPUL NEB SCH ×2 (08:06→11:07)
[2019-07-13] MEDS: LACTOBACILLUS ACIDOPHILUS 250 MG TAB PO SCH (09:35)
[2019-07-13] MEDS: GABAPENTIN 300 MG CAPSULE PO SCH ×2 (09:35→23:10)
[2019-07-13] MEDS: AMIODARONE HCL 200 MG TABLET PO SCH (09:36)
[2019-07-13] MEDS: APIXABAN 5 MG TABLET PO SCH ×2 (09:36→18:29)
[2019-07-13] MEDS: FERROUS SULFATE 325 MG TABLET PO SCH ×2 (09:36→18:29)
[2019-07-13] MEDS: VENLAFAXINE HCL 75 MG CAP.SR.24H PO SCH (09:36)
[2019-07-13] MEDS: MULTIVITAMIN TABLET PO SCH (09:36)
[2019-07-13] MEDS: DOCUSATE SODIUM 100 MG CAPSULE PO SCH ×2 (09:36→18:30)
[2019-07-13] MEDS: FOLIC ACID 1 MG TABLET PO SCH (09:36)
[2019-07-13] MEDS: THIAMINE HCL 100 MG TABLET PO SCH (09:37)
[2019-07-13] MEDS ORDERED: AMIODARONE HCL 200 MG TABLET PO SCH (10:00)
[2019-07-13] MEDS ORDERED: LACTOBACILLUS ACIDOPHILUS PO SCH (10:00)
--- NOTE | 2019-07-13 11:16 | PDOC PROGRESS REPORT ---
Subjective Progress Note for:: 07/13/19 Subjective:: Patient is tolerated high flow nasal cannula through the night. He appears comfortable this morning. He does complain of low back pain. This is chronic. His daughter is at the bedside during this encounter. Reason For Visit: SEPSIS, RESP FAILURE, PNEUMONIA Physical Exam Vital Signs: Temp Pulse Resp BP Pulse Ox 99.0 F 77 13 138/79 H 96 07/13/19 08:00 07/13/19 10:00 07/13/19 10:15 07/13/19 10:15 07/13/19 10:15 Intake & Output 07/12/19 07/13/19 07/14/19 06:59 06:59 06:59 Intake Total 1395 2102 Output Total 845 4125 450 Balance 550 -2022 -450 Weight 70.8 kg 67.7 kg General appearance: PRESENT: no acute distress, cooperative, well-developed, other - High flow nasal cannula in place Head exam: PRESENT: atraumatic, normocephalic Ear exam: PRESENT: normal external ear exam. ABSENT: bleeding, drainage Mouth exam: PRESENT: dry mucosa, tongue midline Teeth exam: PRESENT: poor dentation - Only has 2 teeth Neck exam: PRESENT: full ROM. ABSENT: carotid bruit, JVD, lymphadenopathy Respiratory exam: PRESENT: rhonchi - Predominantly on the right, symmetrical, unlabored. ABSENT: accessory muscle use, rales, tachypnea, wheezes Cardiovascular exam: PRESENT: RRR, +S1, +S2, other - Somewhat difficult to auscultate due to loud breath sounds Pulses: PRESENT: +1 pedal pulses bilateral GI/Abdominal exam: PRESENT: normal bowel sounds, soft. ABSENT: distended, tenderness Rectal exam: PRESENT: deferred Gentrourinary exam: PRESENT: indwelling catheter Extremities exam: ABSENT: calf tenderness, pedal edema, tenderness Musculoskeletal exam: PRESENT: ambulatory, normal inspection. ABSENT: deformity Neurological exam: PRESENT: alert, awake, oriented to person, oriented to place, oriented to time, oriented to situation, CN II-XII grossly intact Psychiatric exam: PRESENT: flat affect. ABSENT: agitated, anxious Focused psych exam: ABSENT: delusional, restlessness Skin exam: PRESENT: dry, normal color, warm. ABSENT: rash Results Laboratory Results: 07/13/19 03:36 07/13/19 03:36 07/13/19 07/13/19 03:36 03:36 WBC 8.2 D RBC 3.44 L Hgb 9.9 L Hct 29.4 L MCV 85 MCH 28.7 MCHC 33.6 RDW 18.6 H Plt Count 272 Seg Neutrophils % 78.6 H Lymphocytes % 13.3 Monocytes % 7.2 Eosinophils % 0.5 Basophils % 0.4 Absolute Neutrophils 6.4 Absolute Lymphocytes 1.1 Absolute Monocytes 0.6 Absolute Eosinophils 0.0 Absolute Basophils 0.0 Sodium 138.6 Potassium 3.8 Chloride 108 H Carbon Dioxide 25 Anion Gap 6 BUN 21 H Creatinine 0.83 Est GFR ( Amer) > 60 Est GFR (Non-Af Amer) > 60 Glucose 87 Calcium 8.3 L 07/11/19 07/11/19 16:49 20:55 Troponin I 0.012 < 0.012 Impressions: Chest X-Ray 07/12/19 06:00 IMPRESSION: STABLE APPEARANCE OF THE CHEST. Assessment and Plan - Diagnosis (1) Sepsis Qualifiers: Sepsis type: sepsis due to unspecified organism Sepsis acute organ dysfunction status: with acute organ dysfunction Severe sepsis acute organ dysfunction type: acute renal failure Acute renal failure type: with acute tubular necrosis Is this a current diagnosis for this admission?: Yes Plan: 07/12/2019-the patient met sepsis criteria due to hypoxemia and acute kidney injury. He exhibited increased work of breathing requiring BiPAP and oxygen supplementation. Sepsis most likely secondary to left lower lobe pneumonia. With IV fluids and antibiotic therapy the sepsis has resolved. 07/13/2019-sepsis resolved. (2) Acute respiratory failure with hypoxia Is this a current diagnosis for this admission?: Yes Plan: 07/12/2019-from a discussion with the patient's daughter at bedside today the patient has a history of COPD. He has been on BiPAP continuously since admission. This morning we will attempt high flow nasal cannula. We will apply this for intermittent windows. We will start at 1 hour on in 3 hours off. This will give the patient a chance to eat and take oral medications. We will gradually increase the high flow nasal cannula until the point when patient no longer needs BiPAP. 07/13/2019-the patient was able to tolerate high flow nasal cannula through the night. BiPAP should just be administered as needed. He seems to be improving and with ongoing treatment hopefully he will not need BiPAP at all. The next step is to wean him to nasal cannula oxygen. Currently his high flow nasal cannula shows an FiO2 of 40%. (3) Hypertension Qualifiers: Hypertension type: essential hypertension Qualified Code(s): I10 - Essential (primary) hypertension Is this a current diagnosis for this admission?: Yes Plan: 07/12/2019-the patient is on losartan 100 mg daily. He is also on carvedilol. I am not sure of the exact dose. Currently his blood pressure is too low to resume losartan at the full strength. I will reassess his blood pressure in the morning and consider resuming losartan at a smaller dose. He also took carvedilol prior to this admission. We will need to get updated records and figure out the exact discharge medication regimen that he was on during his hospitalization in [facility] 07/13/2019-I did review notes from the hospital in [place]. The patient was discharged on amiodarone 200 mg daily, digoxin 0.25 mg daily and verapamil 180 mg twice daily. He is back on the amiodarone. I have started verapamil 120 mg once a day and I have held the digoxin. This should help his blood pressure. I believe as he becomes more active we will be able to work came back to his previous doses. Right now I do not believe he could tolerate all 3 medications at the previous dosing. We will continue to monitor his blood pressure and pulse. (4) GERD (gastroesophageal reflux disease) Qualifiers: Esophagitis presence: without esophagitis Qualified Code(s): K21.9 - Gastro-esophageal reflux disease without esophagitis Is this a current diagnosis for this admission?: Yes Plan: 07/12/2019-I will resume the patient's Protonix and discontinue the famotidine 07/13/2019-he is back on Protonix 40 mg daily. No complaints of reflux at this time. (5) Bradycardia Is this a current diagnosis for this admission?: Yes Plan: 07/12/2019-bradycardia was secondary to too much carvedilol. The patient was prescribed 1 tablet twice daily and was taking 1 tablet 3 times a day. We will need to get more information regarding the exact dose of carvedilol. I have resumed the amiodarone with a parameter to hold for pulse less than 60. He is also listed as being on digoxin. I will try and get a clear picture of his cardiac medication profile tomorrow. Old records have been requested from the hospital in [place]. 07/13/2019-the offending drug was not carvedilol. The only medication that he was scheduled to take twice daily as verapamil. I believe this is the bottle that the patient had handwritten 3 times a day on the label. He is no longer bradycardic. As noted above I have resumed the amiodarone with a much smaller dose of verapamil and I am holding the digoxin for now. We will continue to monitor the patient on telemetry and watch his blood pressure and pulse. (6) Pneumonia Qualifiers: Pneumonia type: due to unspecified organism Laterality: left Lung location: lower lobe of lung Qualified Code(s): J18.1 - Lobar pneumonia, unspecified organism Is this a current diagnosis for this admission?: Yes Plan: 07/12/2019-chest x-ray suggests left lower lobe pneumonia. We will continue the cefepime at this time. White blood cell count dropped precipitously. We will repeat a CBC tomorrow. Leukopenia can be a side effect of some antibiotics. 07/13/2019-breathing is easier. Continue IV cefepime. Oxygen requirements are less. Blood and urine cultures are no growth at 48 hours. No sputum was obtained. (7) CECILY (acute kidney injury) Is this a current diagnosis for this admission?: Yes Plan: 07/12/2019-serum creatinine was greater than 2.0 on admission. It is down to 1.66. We will continue to follow the renal function. We will also monitor the patient's oral intake of fluids and supplement with IV if needed. 07/13/2019-the serum creatinine is back to normal. The GFR is greater than 60. Acute kidney injury is resolved. I did have a long discussion regarding limited use of nonsteroidal anti-inflammatory medications for his arthritis. (8) Hyperkalemia Is this a current diagnosis for this admission?: Yes Plan: 07/12/2019-the patient's potassium on admission was 5.5. This is likely reflection of the acute kidney injury. His serum potassium is currently normal. We will continue to monitor. 07/13/2019-the serum potassium has been in the normal range for 2 days in a row. This is likely related to correction of the acute kidney injury. We will continue to monitor electrolytes. (9) Obstructive uropathy Is this a current diagnosis for this admission?: Yes Plan: 07/13/2019-we will discontinue Skel[place] catheter. Patient reports significant nocturia as well as dribbling in the past. Will initiate Flomax therapy and hopefully this will improve the patient's symptom complex. (10) Chronic obstructive pulmonary disease Qualifiers: COPD type: COPD with acute lower respiratory infection Qualified Code(s): J44.0 - Chronic obstructive pulmonary disease with acute lower respiratory infection Is this a current diagnosis for this admission?: Yes Plan: 07/13/2019-the patient uses Symbicort and albuterol at home. This was confirmed on the discharge paperwork from the hospital in [place]. He does report a morning cough productive of sputum. I will use Brio Ellipta for the time being since Symbicort is not on the formulary and I will add Spiriva daily. At this time I do not feel systemic steroids are required. (11) Physical deconditioning Is this a current diagnosis for this admission?: Yes Plan: 07/13/2019-the patient had a protracted hospitalization in [facility]. It was about 2 months. He is now hospitalized again with acute respiratory failure and pneumonia. He is quite weak. I have asked physical therapy to start working with the patient. Hopefully we can get him strong enough to discharge to home with home health. - Time Time Spent with patient: 15-24 minutes Medications reviewed and adjusted accordingly: Yes Anticipated discharge: Home with Homehealth
[2019-07-13] MEDS ORDERED: LEVALBUTEROL HCL NEB 1.25 MG/3 ML AMPUL NEB PRN (11:19)
[2019-07-13] MEDS ORDERED: TAMSULOSIN HCL 0.4 MG CAP.SR.24H PO ONE (12:00)
[2019-07-13] MEDS: FLUTICASONE/VILANTEROL 200-25 MCG/DOSE IH SCH (15:24)
[2019-07-13] MEDS: TIOTROPIUM BROMIDE DPI 5 CAP/KIT (18 MCG/CAP) IH SCH (15:24)
[2019-07-13] MEDS: TAMSULOSIN HCL 0.4 MG CAP.SR.24H PO SCH (18:29)
[2019-07-13] MEDS: CEFEPIME HCL 2 GM in DEXTROSE 5%-WATER 50 ML IV SCH (18:39)
[2019-07-14] MEDS: PANTOPRAZOLE SODIUM 40 MG TABLET.DR PO SCH (05:04)
[2019-07-14] MEDS: OXYCODONE HCL IR 5 MG TABLET PO PRN ×4 (05:04→21:48)
[2019-07-14 06:58] LABS: ABSOLUTE EOSINOPHILS # (AUTO) 0.1 10^3/uL (0.0-0.6); ABSOLUTE LYMPHOCYTES (AUTO) 1.2 10^3/uL (0.5-4.7); ABSOLUTE MONOCYTES (AUTO) 0.5 10^3/uL (0.1-1.4); ABSOLUTE NEUT (AUTO) 4.7 10^3/uL (1.7-8.2); BASOPHILS % (AUTO) 0.6 % (0-2); EOSINOPHILS % (AUTO) 2.2 % (0-6); HEMATOCRIT 29.3 % (37.9-51.0); HEMOGLOBIN 9.6 g/dL (13.5-17.0); LYMPHOCYTES % (AUTO) 18.7 % (13-45); MEAN CORPUSCULAR HEMOGLOBIN 27.9 pg (27.0-33.4); MEAN CORPUSCULAR HGB CONC 32.7 g/dL (32.0-36.0); MEAN CORPUSCULAR VOLUME 86 fl (80-97); MONOCYTES % (AUTO) 7.7 % (3-13); PLATELET COUNT 262 10^3/uL (150-450); RED BLOOD COUNT 3.43 10^6/uL (4.35-5.55); RED CELL DISTRIBUTION WIDTH 18.9 % (11.5-14.0); SEGMENTED NEUTROPHILS % (AUTO) 70.8 % (42-78); TOTAL CELLS COUNTED % (AUTO) 100 %; WHITE BLOOD COUNT 6.6 10^3/uL (4.0-10.5)
[2019-07-14 07:19] LABS: ANION GAP 5 (5-19); BLOOD UREA NITROGEN 16 mg/dL (7-20); CALCIUM 7.9 mg/dL (8.4-10.2); CARBON DIOXIDE 26 mmol/L (22-30); CHLORIDE 107 mmol/L (98-107); GLUCOSE 86 mg/dL (75-110); POTASSIUM 3.7 mmol/L (3.6-5.0)
[2019-07-14] MEDS: AMIODARONE HCL 200 MG TABLET PO SCH (09:20)
[2019-07-14] MEDS: DOCUSATE SODIUM 100 MG CAPSULE PO SCH ×2 (09:20→17:19)
[2019-07-14] MEDS: MULTIVITAMIN TABLET PO SCH (09:20)
[2019-07-14] MEDS: VERAPAMIL HCL 120 MG TABLET.SA PO SCH (09:20)
[2019-07-14] MEDS: THIAMINE HCL 100 MG TABLET PO SCH (09:20)
[2019-07-14] MEDS: VENLAFAXINE HCL 75 MG CAP.SR.24H PO SCH (09:20)
[2019-07-14] MEDS: FERROUS SULFATE 325 MG TABLET PO SCH ×2 (09:20→17:19)
[2019-07-14] MEDS: FOLIC ACID 1 MG TABLET PO SCH (09:20)
[2019-07-14] MEDS: APIXABAN 5 MG TABLET PO SCH ×2 (09:20→17:19)
[2019-07-14] MEDS: LACTOBACILLUS ACIDOPHILUS 250 MG TAB PO SCH (09:20)
[2019-07-14] MEDS: FLUTICASONE/VILANTEROL 200-25 MCG/DOSE IH SCH (09:20)
[2019-07-14] MEDS: GABAPENTIN 300 MG CAPSULE PO SCH ×2 (09:20→21:48)
[2019-07-14] MEDS: TIOTROPIUM BROMIDE DPI 5 CAP/KIT (18 MCG/CAP) IH SCH (09:21)
[2019-07-14] MEDS: NORMAL SALINE 1000 ML 1,000 ML IV PRN (09:25)
--- NOTE | 2019-07-14 12:37 | Progress Note Acknowledgement ---
Progress Note Acknowledgement Progess Note Acknowledgement: I, the undersigned member of the medical staff with appropriate privileges and with supervisory authority over [ PAC], a dependent practice allied health professional, acknowledge that I have reviewed the progress notes entered on this patient, and in my professional judgment believe that the assessment made and/or any care evidenced was appropriate
[2019-07-14] MEDS: TAMSULOSIN HCL 0.4 MG CAP.SR.24H PO SCH (17:19)
[2019-07-14] MEDS: CEFEPIME HCL 2 GM in DEXTROSE 5%-WATER 50 ML IV SCH (17:22)
[2019-07-15] MEDS: OXYCODONE HCL IR 5 MG TABLET PO PRN ×4 (03:37→21:03)
[2019-07-15] MEDS: NORMAL SALINE 1000 ML 1,000 ML IV PRN ×2 (03:38→14:25)
[2019-07-15] MEDS: PANTOPRAZOLE SODIUM 40 MG TABLET.DR PO SCH (05:13)
[2019-07-15] MEDS: LACTOBACILLUS ACIDOPHILUS 250 MG TAB PO SCH (09:30)
[2019-07-15] MEDS: DOCUSATE SODIUM 100 MG CAPSULE PO SCH ×2 (09:30→17:04)
[2019-07-15] MEDS: THIAMINE HCL 100 MG TABLET PO SCH (09:31)
[2019-07-15] MEDS: FOLIC ACID 1 MG TABLET PO SCH (09:31)
[2019-07-15] MEDS: VENLAFAXINE HCL 75 MG CAP.SR.24H PO SCH (09:31)
[2019-07-15] MEDS: GABAPENTIN 300 MG CAPSULE PO SCH ×2 (09:31→21:03)
[2019-07-15] MEDS: VERAPAMIL HCL 120 MG TABLET.SA PO SCH (09:31)
[2019-07-15] MEDS: APIXABAN 5 MG TABLET PO SCH ×2 (09:31→17:04)
[2019-07-15] MEDS: MULTIVITAMIN TABLET PO SCH (09:31)
[2019-07-15] MEDS: FERROUS SULFATE 325 MG TABLET PO SCH ×2 (09:31→17:04)
[2019-07-15] MEDS: AMIODARONE HCL 200 MG TABLET PO SCH (09:31)
[2019-07-15] MEDS: TIOTROPIUM BROMIDE DPI 5 CAP/KIT (18 MCG/CAP) IH SCH (09:32)
[2019-07-15] MEDS: FLUTICASONE/VILANTEROL 200-25 MCG/DOSE IH SCH (09:32)
--- NOTE | 2019-07-15 11:32 | PDOC PROGRESS REPORT ---
Subjective Progress Note for:: 07/15/19 Subjective:: He is a 58-year-old male who is in to the hospital on 819 for sepsis respiratory failure and pneumonia. Patient was admitted through the emergency room for shortness of breath as well as altered mental status. Patient had been discharged from a hospital in [place] about 3 days prior to coming to this ER. In the [place] hospital he was there for at least 2 months was being treated for MRSA and bacteremia. In our emergency room patient was on BiPAP, daughter reports that the patient had fallen twice the night before coming to our ER and it actually fallen once more right before presenting to the ER at home. There is some question about him taking his medication improperly. X-ray is suspicious for pneumonia patient is to be admitted to the hospital for that problem. 07/15/2019 patient's vital signs are stable blood pressure 155/88 temperature 98 pulse 60 O2 sat 96% on nasal cannula however FiO2 is 40% and the rate is 40. We will try to wean this down today tomorrow.. White counts normal 6.6 blood culture urine culture shows no growth 72 hours. Chest x-ray on 07/12/2019 was stable showing no signs of pneumonia Reason For Visit: SEPSIS, RESP FAILURE, PNEUMONIA Physical Exam Vital Signs: Temp Pulse Resp BP Pulse Ox 98.1 F 60 17 155/88 H 96 07/15/19 07:39 07/15/19 07:39 07/15/19 07:39 07/15/19 07:39 07/15/19 07:39 Intake & Output 07/14/19 07/15/19 07/16/19 06:59 06:59 06:59 Intake Total 1410 3010 Output Total 850 1000 Balance 560 2009 Weight 66.8 kg 67 kg General appearance: PRESENT: mild distress Respiratory exam: PRESENT: decreased breath sounds Cardiovascular exam: PRESENT: RRR. ABSENT: diastolic murmur, rubs, systolic murmur Neurological exam: PRESENT: alert, awake, oriented to person, oriented to place, oriented to time, oriented to situation, CN II-XII grossly intact. ABSENT: motor sensory deficit Psychiatric exam: PRESENT: appropriate affect, normal mood, other - She is very pleasant no complaints. ABSENT: homicidal ideation, suicidal ideation Results Laboratory Results: 07/14/19 06:17 07/14/19 06:17 07/11/19 07/11/19 16:49 20:55 Troponin I 0.012 < 0.012 Impressions: Chest X-Ray 07/12/19 06:00 IMPRESSION: STABLE APPEARANCE OF THE CHEST. Assessment and Plan - Diagnosis (1) Bradycardia Is this a current diagnosis for this admission?: Yes Plan: 07/12/2019-bradycardia was secondary to too much carvedilol. The patient was prescribed 1 tablet twice daily and was taking 1 tablet 3 times a day. We will need to get more information regarding the exact dose of carvedilol. I have resumed the amiodarone with a parameter to hold for pulse less than 60. He is also listed as being on digoxin. I will try and get a clear picture of his cardiac medication profile tomorrow. Old records have been requested from the [facility] in [place]. 07/13/2019-the offending drug was not carvedilol. The only medication that he was scheduled to take twice daily as verapamil. I believe this is the bottle that the patient had handwritten 3 times a day on the label. He is no longer bradycardic. As noted above I have resumed the amiodarone with a much smaller dose of verapamil and I am holding the digoxin for now. We will continue to monitor the patient on telemetry and watch his blood pressure and pulse. 07/14/2019 on admission patient's heart rate is 66 and patient's heart rate actually maintains either in the 70s or 60 for the last 48 hours. While here in the hospital he is taking it around 200 mg daily, calan, SR 120 mg daily, as well as OxyIR 10 mg every 4 hours as needed for pain 07/15/2019 patient's heart rate is running anywhere from upper 50s to the low 60s consistently (2) Chronic obstructive pulmonary disease Qualifiers: COPD type: COPD with acute lower respiratory infection Qualified Code(s): J44.0 - Chronic obstructive pulmonary disease with acute lower respiratory infection Is this a current diagnosis for this admission?: Yes Plan: 07/13/2019-the patient uses Symbicort and albuterol at home. This was confirmed on the discharge paperwork from the hospital in [place]. He does report a morning cough productive of sputum. I will use Brio Ellipta for the time being since Symbicort is not on the formulary and I will add Spiriva daily. At this time I do not feel systemic steroids are required. 07/14/2019 chest x-ray from 07/12 when compared to the prior study dated 07/11 shows a stable appearance no mention of consolidation or pneumonia 07/15/2019 patient COPD is requiring high flow oxygen obtain sats, however patient is not complaining of shortness of breath and does not appear to be in respiratory distress (3) GERD (gastroesophageal reflux disease) Qualifiers: Esophagitis presence: without esophagitis Qualified Code(s): K21.9 - Gastro-esophageal reflux disease without esophagitis Is this a current diagnosis for this admission?: Yes Plan: 07/12/2019-I will resume the patient's Protonix and discontinue the famotidine 07/13/2019-he is back on Protonix 40 mg daily. No complaints of reflux at this time. 07/14/2019 plaints of reflux patient only continues Protonix 40 mg a day 07/15/2019 complaints of GERD (4) Hypertension Qualifiers: Hypertension type: essential hypertension Qualified Code(s): I10 - Essential (primary) hypertension Is this a current diagnosis for this admission?: Yes Plan: 07/12/2019-the patient is on losartan 100 mg daily. He is also on carvedilol. I am not sure of the exact dose. Currently his blood pressure is too low to resume losartan at the full strength. I will reassess his blood pressure in the morning and consider resuming losartan at a smaller dose. He also took carvedilol prior to this admission. We will need to get updated records and figure out the exact discharge medication regimen that he was on during his hospitalization in [facility] 07/13/2019-I did review notes from the hospital in [place]. The patient was discharged on amiodarone 200 mg daily, digoxin 0.25 mg daily and verapamil 180 mg twice daily. He is back on the amiodarone. I have started verapamil 120 mg once a day and I have held the digoxin. This should help his blood pressure. I believe as he becomes more active we will be able to work came back to his previous doses. Right now I do not believe he could tolerate all 3 medications at the previous dosing. We will continue to monitor his blood pressure and pulse. 07/15/2019 patient's blood pressures are running approximately 140/80 above medications, no spikes no dips (5) Pneumonia Qualifiers: Pneumonia type: due to unspecified organism Laterality: left Lung location: lower lobe of lung Qualified Code(s): J18.1 - Lobar pneumonia, unspecified organism Is this a current diagnosis for this admission?: Yes Plan: 07/12/2019-chest x-ray suggests left lower lobe pneumonia. We will continue the cefepime at this time. White blood cell count dropped precipitously. We will repeat a CBC tomorrow. Leukopenia can be a side effect of some antibiotics. 07/13/2019-breathing is easier. Continue IV cefepime. Oxygen requirements are less. Blood and urine cultures are no growth at 48 hours. No sputum was obtained. 07/14/2019 patient's chest x-ray from 820 showed no evidence of pneumonia at this time chest x-ray on admission dated 07/11 showed possible mild pulmonary edema and a likely left lower lobe pneumonia. Clearly there is a discrepancy in the last 2 days his chest x-ray. However on admission patient also had a slightly elevated white count at 12,100 and now his white counts down to 6.6. One could possibly assume that this is in response to his antibiotics. We will continue IV cefepime this is day 3 07/15/2019 repeat chest x-ray today, normal white count culture showed no growth in 72 hours this is day 4 of IV cefepime - Time Time Spent with patient: 25-34 minutes
--- NOTE | 2019-07-15 12:43 | RADIOLOGY REPORT (SQ) ---
EXAM DESCRIPTION: CHEST SINGLE VIEW COMPLETED DATE/TIME: 07/15/2019 12:30 pm REASON FOR STUDY: follow up pneumonia COMPARISON: 07/12/2019 NUMBER OF VIEWS: One view. TECHNIQUE: Single frontal radiographic view of the chest acquired. LIMITATIONS: None. FINDINGS: LUNGS AND PLEURA: There is increasing bilateral pleural effusions and bibasilar airspace d isease. There is asymmetric airspace disease in the left upper lobe as well. MEDIASTINUM AND HILAR STRUCTURES: No masses. Contour normal. HEART AND VASCULAR STRUCTURES: Heart size is stable. There is persistent central vascular prominence . BONES: No acute findings. HARDWARE: None in the chest. OTHER: No other significant finding. IMPRESSION: Increasing basilar airspace disease. Persistent asymmetric airspace disease in the left upper lobe. This may represent multifocal pneumonia or asymmetric edema or a combination of the two . There are small bilateral pleural effusions. TECHNICAL DOCUMENTATION: JOB ID: [id number] [employer]- All Rights Reserved Reading location - IP/workstation name: [email or web address]
[2019-07-15] MEDS: CEFEPIME HCL 2 GM in DEXTROSE 5%-WATER 50 ML IV SCH (17:04)
[2019-07-15] MEDS: TAMSULOSIN HCL 0.4 MG CAP.SR.24H PO SCH (17:04)
[2019-07-16] MEDS: OXYCODONE HCL IR 5 MG TABLET PO PRN ×5 (01:49→22:18)
[2019-07-16] MEDS: PANTOPRAZOLE SODIUM 40 MG TABLET.DR PO SCH (05:50)
[2019-07-16] MEDS: FERROUS SULFATE 325 MG TABLET PO SCH ×2 (08:22→16:37)
[2019-07-16] MEDS: NORMAL SALINE 1000 ML 1,000 ML IV PRN (08:23)
[2019-07-16] MEDS: GABAPENTIN 300 MG CAPSULE PO SCH ×2 (10:24→21:26)
[2019-07-16] MEDS: THIAMINE HCL 100 MG TABLET PO SCH (10:24)
[2019-07-16] MEDS: TIOTROPIUM BROMIDE DPI 5 CAP/KIT (18 MCG/CAP) IH SCH (10:24)
[2019-07-16] MEDS: FLUTICASONE/VILANTEROL 200-25 MCG/DOSE IH SCH (10:24)
[2019-07-16] MEDS: VERAPAMIL HCL 120 MG TABLET.SA PO SCH ×3 (10:24→21:26)
[2019-07-16] MEDS: MULTIVITAMIN TABLET PO SCH (10:24)
[2019-07-16] MEDS: AMIODARONE HCL 200 MG TABLET PO SCH (10:25)
[2019-07-16] MEDS: DOCUSATE SODIUM 100 MG CAPSULE PO SCH ×2 (10:25→17:29)
[2019-07-16] MEDS: APIXABAN 5 MG TABLET PO SCH ×2 (10:25→17:32)
[2019-07-16] MEDS: FOLIC ACID 1 MG TABLET PO SCH (10:25)
[2019-07-16] MEDS: VENLAFAXINE HCL 75 MG CAP.SR.24H PO SCH (10:25)
[2019-07-16] MEDS: LACTOBACILLUS ACIDOPHILUS 250 MG TAB PO SCH (10:25)
--- NOTE | 2019-07-16 12:52 | PDOC PROGRESS REPORT ---
Subjective Progress Note for:: 07/16/19 Subjective:: He is a 58-year-old male who is in to the hospital on 819 for sepsis respiratory failure and pneumonia. Patient was admitted through the emergency room for shortness of breath as well as altered mental status. Patient had been discharged from a hospital in [place] about 3 days prior to coming to this ER. In the [place] hospital he was there for at least 2 months was being treated for MRSA and bacteremia. In our emergency room patient was on BiPAP, daughter reports that the patient had fallen twice the night before coming to our ER and it actually fallen once more right before presenting to the ER at home. There is some question about him taking his medication improperly. X-ray is suspicious for pneumonia patient is to be admitted to the hospital for that problem. 07/15/2019 patient's vital signs are stable blood pressure 155/88 temperature 98 pulse 60 O2 sat 96% on nasal cannula however FiO2 is 40% and the rate is 40. We will try to wean this down today tomorrow.. White counts normal 6.6 blood culture urine culture shows no growth 72 hours. Chest x-ray on 07/12/2019 was stable showing no signs of pneumonia 07 16 19 patient remains afebrile 97 8 blood pressure 163/96 pulse 65 O2 sat 95% on a flow rate of 18 and a percent of oxygen 50%, CPAP. Flow rate has been as high as 40 so we are weaning him saturation was started off at 100% then went down to 60% and now was at 50%. Patient seems to be improving. However chest x-ray increased disease, even though his white count is coming down he remains afebrile and he has been on antibiotics now for several days and also blood cultures are negative. Patient is also asking to go home he says he feels well enough to go home Reason For Visit: SEPSIS, RESP FAILURE, PNEUMONIA Physical Exam Vital Signs: Temp Pulse Resp BP Pulse Ox 97.8 F 65 16 163/96 H 95 07/16/19 12:10 07/16/19 12:10 07/16/19 12:10 07/16/19 12:10 07/16/19 12:10 Intake & Output 07/15/19 07/16/19 07/17/19 06:59 06:59 06:59 Intake Total 3010 2779 Output Total 1000 1750 Balance 2010 1029 Weight 67 kg 71 kg General appearance: PRESENT: no acute distress Respiratory exam: PRESENT: decreased breath sounds Cardiovascular exam: PRESENT: RRR. ABSENT: diastolic murmur, rubs, systolic murmur Neurological exam: PRESENT: alert, awake, oriented to person, oriented to place, oriented to time, oriented to situation, CN II-XII grossly intact. ABSENT: motor sensory deficit Psychiatric exam: PRESENT: appropriate affect, normal mood, other - Resident no anxiety. ABSENT: homicidal ideation, suicidal ideation Results Laboratory Results: 07/14/19 06:17 07/14/19 06:17 07/11/19 07/11/19 16:49 20:55 Troponin I 0.012 < 0.012 Impressions: Chest X-Ray 07/15/19 00:00 IMPRESSION: Increasing basilar airspace disease. Persistent asymmetric airspace disease in the left upper lobe. This may represent multifocal pneumonia or asymmetric edema or a combination of the two. There are small bilateral pleural effusions. Assessment and Plan - Diagnosis (1) Bradycardia Is this a current diagnosis for this admission?: Yes Plan: 07/12/2019-bradycardia was secondary to too much carvedilol. The patient was prescribed 1 tablet twice daily and was taking 1 tablet 3 times a day. We will need to get more information regarding the exact dose of carvedilol. I have resumed the amiodarone with a parameter to hold for pulse less than 60. He is also listed as being on digoxin. I will try and get a clear picture of his cardiac medication profile tomorrow. Old records have been requested from the hospital in [place]. 07/13/2019-the offending drug was not carvedilol. The only medication that he was scheduled to take twice daily as verapamil. I believe this is the bottle that the patient had handwritten 3 times a day on the label. He is no longer bradycardic. As noted above I have resumed the amiodarone with a much smaller dose of verapamil and I am holding the digoxin for now. We will continue to monitor the patient on telemetry and watch his blood pressure and pulse. 07/14/2019 on admission patient's heart rate is 66 and patient's heart rate actuisabel nielsen maintains either in the 70s or 60 for the last 48 hours. While here in the hospital he is taking it around 200 mg daily, calan, SR 120 mg daily, as well as OxyIR 10 mg every 4 hours as needed for pain 07/15/2019 patient's heart rate is running anywhere from upper 50s to the low 60s consistently. 07/16/2019 rate is stable, no fluctuation, no symptoms (2) Chronic obstructive pulmonary disease Qualifiers: COPD type: COPD with acute lower respiratory infection Qualified Code(s): J44.0 - Chronic obstructive pulmonary disease with acute lower respiratory infection Is this a current diagnosis for this admission?: Yes Plan: 07/13/2019-the patient uses Symbicort and albuterol at home. This was confirmed on the discharge paperwork from the hospital in [place]. He does report a morning cough productive of sputum. I will use Brio Ellipta for the time being since Symbicort is not on the formulary and I will add Spiriva daily. At this time I do not feel systemic steroids are required. 07/14/2019 chest x-ray from 07/12 when compared to the prior study dated 07/11 shows a stable appearance no mention of consolidation or pneumonia 07/15/2019 patient COPD is requiring high flow oxygen obtain sats, however patient is not complaining of shortness of breath and does not appear to be in respiratory distress 07/16/2019 we are weaning patient down off of his oxygen saturation as well as his rate. He continues to maintain sats to the mid and upper 90s no sign of respiratory distress (3) GERD (gastroesophageal reflux disease) Qualifiers: Esophagitis presence: without esophagitis Qualified Code(s): K21.9 - Gastro-esophageal reflux disease without esophagitis Is this a current diagnosis for this admission?: Yes Plan: 07/12/2019-I will resume the patient's Protonix and discontinue the famotidine 07/13/2019-he is back on Protonix 40 mg daily. No complaints of reflux at this time. 07/14/2019 plaints of reflux patient only continues Protonix 40 mg a day 07/15/2019 no complaints of GERD 07/16/2019 patient continues to remain asymptomatic on Protonix 40 mg daily (4) Hypertension Qualifiers: Hypertension type: essential hypertension Qualified Code(s): I10 - Es sential (primary) hypertension Is this a current diagnosis for this admission?: Yes Plan: 07/12/2019-the patient is on losartan 100 mg daily. He is also on carvedilol. I am not sure of the exact dose. Currently his blood pressure is too low to resume losartan at the full strength. I will reassess his blood pressure in the morning and consider resuming losartan at a smaller dose. He also took carvedilol prior to this admission. We will need to get updated records and figure out the exact discharge medication regimen that he was on during his hospitalization in [facility] 07/13/2019-I did review notes from the hospital in [place]. The patient was discharged on amiodarone 200 mg daily, digoxin 0.25 mg daily and verapamil 180 mg twice daily. He is back on the amiodarone. I have started verapamil 120 mg once a day and I have held the digoxin. This should help his blood pressure. I believe as he becomes more active we will be able to work came back to his previous doses. Right now I do not believe he could tolerate all 3 medications at the previous dosing. We will continue to monitor his blood pressure and pulse. 07/15/2019 patient's blood pressures are running approximately 140/80 above medications, no spikes no dips 07/16/2019 since blood pressures can possibly come down slightly adjust his medic ations today, will increase his verapamil to twice daily (5) Pneumonia Qualifiers: Pneumonia type: due to unspecified organism Laterality: left Lung location: lower lobe of lung Qualified Code(s): J18.1 - Lobar pneumonia, unspecified organism Is this a current diagnosis for this admission?: Yes Plan: 07/12/2019-chest x-ray suggests left lower lobe pneumonia. We will continue the cefepime at this time. White blood cell count dropped precipitously. We will repeat a CBC tomorrow. Leukopenia can be a side effect of some antibiotics. 07/13/2019-breathing is easier. Continue IV cefepime. Oxygen requirements are l ess. Blood and urine cultures are no growth at 48 hours. No sputum was obtained. 07/14/2019 patient's chest x-ray from 820 showed no evidence of pneumonia at this time chest x-ray on admission dated 07/11 showed possible mild pulmonary edema and a likely left lower lobe pneumonia. Clearly there is a discrepancy in the last 2 days his chest x-ray. However on admission patient also had a slightly elevated white count at 12,100 and now his white counts down to 6.6. One could possibly assume that this is in response to his antibiotics. We will continue IV cefepime this is day 3 07/15/2019 repeat chest x-ray today, normal white count culture showed no growth in 72 hours this is day 4 of IV cefepime 07/16/2019 this x-ray from yesterday shows increasing pneumonia, even though he has a normal white count and normal blood cultures and has been on cefepime for 5 days now. Add Zithromax to his antibiotics - Time Time Spent with patient: 25-34 minutes
[2019-07-16] MEDS ORDERED: ACETAMINOPHEN 325 MG TABLET PO PRN (13:20)
[2019-07-16 13:32] LABS: ANION GAP 8 (5-19); BLOOD UREA NITROGEN 10 mg/dL (7-20); CALCIUM 8.6 mg/dL (8.4-10.2); CARBON DIOXIDE 32 mmol/L (22-30); CHLORIDE 98 mmol/L (98-107); GLUCOSE 84 mg/dL (75-110); POTASSIUM 4.1 mmol/L (3.6-5.0)
[2019-07-16] MEDS: OXYCODONE-ACETAMINOPHEN 5-325 MG TABLET PO PRN ×2 (13:58→19:43)
[2019-07-16] MEDS ORDERED: AZITHROMYCIN INJ 500 MG VIAL IV SCH (14:00)
[2019-07-16 14:33] LABS: ABSOLUTE BASOPHILS # (AUTO) 0.1 10^3/uL (0.0-0.2); ABSOLUTE EOSINOPHILS # (AUTO) 0.2 10^3/uL (0.0-0.6); ABSOLUTE LYMPHOCYTES (AUTO) 1.4 10^3/uL (0.5-4.7); ABSOLUTE MONOCYTES (AUTO) 0.7 10^3/uL (0.1-1.4); ABSOLUTE NEUT (AUTO) 3.4 10^3/uL (1.7-8.2); BASOPHILS % (AUTO) 1.3 % (0-2); EOSINOPHILS % (AUTO) 3.1 % (0-6); HEMATOCRIT 33.7 % (37.9-51.0); LYMPHOCYTES % (AUTO) 24.9 % (13-45); MEAN CORPUSCULAR HEMOGLOBIN 27.9 pg (27.0-33.4); MEAN CORPUSCULAR HGB CONC 32.7 g/dL (32.0-36.0); MEAN CORPUSCULAR VOLUME 85 fl (80-97); MONOCYTES % (AUTO) 12.5 % (3-13); PLATELET COUNT 272 10^3/uL (150-450); RED BLOOD COUNT 3.95 10^6/uL (4.35-5.55); RED CELL DISTRIBUTION WIDTH 17.9 % (11.5-14.0); SEGMENTED NEUTROPHILS % (AUTO) 58.2 % (42-78); TOTAL CELLS COUNTED % (AUTO) 100 %; WHITE BLOOD COUNT 5.8 10^3/uL (4.0-10.5)
[2019-07-16] MEDS ORDERED: AZITHROMYCIN 500 MG in DEXTROSE 5%-WATER 250 ML IV SCH (16:00)
[2019-07-16] MEDS: TAMSULOSIN HCL 0.4 MG CAP.SR.24H PO SCH (17:32)
[2019-07-16] MEDS: CEFEPIME HCL 2 GM in DEXTROSE 5%-WATER 50 ML IV SCH (17:59)
[2019-07-17] MEDS: OXYCODONE-ACETAMINOPHEN 5-325 MG TABLET PO PRN ×4 (00:13→14:48)
[2019-07-17] MEDS: NORMAL SALINE 1000 ML 1,000 ML IV PRN (00:14)
[2019-07-17] MEDS: OXYCODONE HCL IR 5 MG TABLET PO PRN ×4 (04:03→16:11)
[2019-07-17] MEDS: PANTOPRAZOLE SODIUM 40 MG TABLET.DR PO SCH (06:28)
[2019-07-17] MEDS: FERROUS SULFATE 325 MG TABLET PO SCH (08:10)
[2019-07-17] MEDS: TIOTROPIUM BROMIDE DPI 5 CAP/KIT (18 MCG/CAP) IH SCH (09:38)
[2019-07-17] MEDS: FLUTICASONE/VILANTEROL 200-25 MCG/DOSE IH SCH (09:38)
[2019-07-17] MEDS: APIXABAN 5 MG TABLET PO SCH (09:39)
[2019-07-17] MEDS: MULTIVITAMIN TABLET PO SCH (09:39)
[2019-07-17] MEDS: LACTOBACILLUS ACIDOPHILUS 250 MG TAB PO SCH (09:39)
[2019-07-17] MEDS: VENLAFAXINE HCL 75 MG CAP.SR.24H PO SCH (09:39)
[2019-07-17] MEDS: FOLIC ACID 1 MG TABLET PO SCH (09:39)
[2019-07-17] MEDS: AMIODARONE HCL 200 MG TABLET PO SCH (09:39)
[2019-07-17] MEDS: THIAMINE HCL 100 MG TABLET PO SCH (09:39)
[2019-07-17] MEDS: GABAPENTIN 300 MG CAPSULE PO SCH (09:39)
[2019-07-17] MEDS: VERAPAMIL HCL 120 MG TABLET.SA PO SCH (09:40)
[2019-07-17] MEDS: DOCUSATE SODIUM 100 MG CAPSULE PO SCH (09:40)
[2019-07-17 12:02] VITALS: BP 130/71
--- NOTE | 2019-07-21 12:11 | PDOC PROGRESS REPORT ---
Subjective Progress Note for:: 07/14/19 Subjective:: He is a 58-year-old male who is in to the hospital on 819 for sepsis respiratory failure and pneumonia. Patient was admitted through the emergency room for shortness of breath as well as altered mental status. Patient had been discharged from a hospital in [place] about 3 days prior to coming to this ER. In the [place] hospital he was there for at least 2 months was being treated for MRSA and bacteremia. In our emergency room patient was on BiPAP, daughter reports that the patient had fallen twice the night before coming to our ER and it actually fallen once more right before presenting to the ER at home. There is some question about him taking his medication improperly. X-ray is suspicious for pneumonia patient is to be admitted to the hospital for that problem Reason For Visit: SEPSIS, RESP FAILURE, PNEUMONIA Physical Exam Vital Signs: Temp Pulse Resp BP Pulse Ox 98.1 F 64 19 138/84 H 89 L 07/14/19 07:50 07/14/19 07:50 07/14/19 08:00 07/14/19 07:50 07/14/19 08:00 Intake & Output 07/13/19 07/14/19 07/15/19 06:59 06:59 06:59 Intake Total 2102 1360 1480 Output Total 4125 850 Balance -2022 510 1480 Weight 67.7 kg 66.8 kg General appearance: PRESENT: no acute distress, well-developed, well-nourished, other - Patient is sitting up in bed talking to me states that his chest feels better as he was having some pressure earlier with admission but that is gone he does not complain of any shortness of breath however he is on a high of oxygen. Head exam: PRESENT: atraumatic, normocephalic Respiratory exam: PRESENT: decreased breath sounds Cardiovascular exam: PRESENT: RRR. ABSENT: diastolic murmur, rubs, systolic murmur Neurological exam: PRESENT: alert, awake, oriented to person, oriented to place, oriented to time, oriented to situation, CN II-XII grossly intact. ABSENT: motor sensory deficit Psychiatric exam: PRESENT: appropriate affect, normal mood. ABSENT: homicidal ideation, suicidal ideation Results Laboratory Results: 07/14/19 06:17 07/14/19 06:17 07/14/19 07/14/19 06:17 06:17 WBC 6.6 RBC 3.43 L Hgb 9.6 L Hct 29.3 L MCV 86 MCH 27.9 MCHC 32.7 RDW 18.9 H Plt Count 262 Seg Neutrophils % 70.8 Sodium 137.7 Potassium 3.7 Chloride 107 Carbon Dioxide 26 Anion Gap 5 BUN 16 Creatinine 0.72 Est GFR ( Amer) > 60 Glucose 86 Calcium 7.9 L 07/11/19 17:54 Clean Catch Midstream Urine Culture - Final NO GROWTH 2 DAYS 07/11/19 07/11/19 16:49 20:55 Troponin I 0.012 < 0.012 Impressions: Chest X-Ray 07/12/19 06:00 IMPRESSION: STABLE APPEARANCE OF THE CHEST. Assessment and Plan - Diagnosis (1) Bradycardia Is this a current diagnosis for this admission?: Yes Plan: 07/12/2019-bradycardia was secondary to too much carvedilol. The patient was prescribed 1 tablet twice daily and was taking 1 tablet 3 times a day. We will need to get more information regarding the exact dose of carvedilol. I have resumed the amiodarone with a parameter to hold for pulse less than 60. He is also listed as being on digoxin. I will try and get a clear picture of his cardiac medication profile tomorrow. Old records have been requested from the hospital in [place]. 07/13/2019-the offending drug was not carvedilol. The only medication that he was scheduled to take twice daily as verapamil. I believe this is the bottle that the patient had handwritten 3 times a day on the label. He is no longer bradycardic. As noted above I have resumed the amiodarone with a much smaller dose of verapamil and I am holding the digoxin for now. We will continue to monitor the patient on telemetry and watch his blood pressure and pulse. 07/14/2019 on admission patient's heart rate is 66 and patient's heart rate actually maintains either in the 70s or 60 for the last 48 hours. While here in the hospital he is taking it around 200 mg daily, K. John, SR 120 mg daily, as well as OxyIR 10 mg every 4 hours as needed for pain (2) Chronic obstructive pulmonary disease Qualifiers: COPD type: COPD with acute lower respiratory infection Qualified Code(s): J44.0 - Chronic obstructive pulmonary disease with acute lower respiratory infection Is this a current diagnosis for this admission?: Yes Plan: 07/13/2019-the patient uses Symbicort and albuterol at home. This was confirmed on the discharge paperwork from the hospital in [place]. He does report a morning cough productive of sputum. I will use Brio Ellipta for the time being since Symbicort is not on the formulary and I will add Spiriva daily. At this time I do not feel systemic steroids are required. 07/14/2019 chest x-ray from 07/12 when compared to the prior study dated 07/11 shows a stable appearance no mention of consolidation or pneumonia (3) GERD (gastroesophageal reflux disease) Qualifiers: Esophagitis presence: without esophagitis Qualified Code(s): K21.9 - Gastro-esophageal reflux disease without esophagitis Is this a current diagnosis for this admission?: Yes Plan: 07/12/2019-I will resume the patient's Protonix and discontinue the famotidine 07/13/2019-he is back on Protonix 40 mg daily. No complaints of reflux at this time. 07/14/2019 plaints of reflux patient only continues Protonix 40 mg a day (4) Hypertension Qualifiers: Hypertension type: essential hypertension Qualified Code(s): I10 - Essential (primary) hypertension Is this a current diagnosis for this admission?: Yes (5) Pneumonia Qualifiers: Pneumonia type: due to unspecified organism Laterality: left Lung location: lower lobe of lung Qualified Code(s): J18.1 - Lobar pneumonia, unspecified organism Is this a current diagnosis for this admission?: Yes Plan: 07/12/2019-chest x-ray suggests left lower lobe pneumonia. We will continue the cefepime at this time. White blood cell count dropped precipitously. We will repeat a CBC tomorrow. Leukopenia can be a side effect of some antibiotics. 07/13/2019-breathing is easier. Continue IV cefepime. Oxygen requirements are less. Blood and urine cultures are no growth at 48 hours. No sputum was obtained. 07/14/2019 patient's chest x-ray from 820 showed no evidence of pneumonia at this time chest x-ray on admission dated 07/11 showed possible mild pulmonary edema and a likely left lower lobe pneumonia. Clearly there is a discrepancy in the last 2 days his chest x-ray. However on admission patient also had a slightly elevated white count at 12,100 and now his white counts down to 6.6. One could possibly assume that this is in response to his antibiotics. We will continue IV cefepime this is day 3 - Time Time Spent with patient: 25-34 minutes - Continue IV cefepime, ask respiratory about trying to wean down the high flow oxygen, in preparation for discharge. Patient did have 2 troponins when he was admitted in both of these were negative. Patient also had a lactic acid level drawn on admission which was normal at 1.2
--- NOTE | 2019-07-26 14:17 | PDOC DISCHARGE SUMMARY ---
General - Admit/Disc Date/PCP Admission Date/Primary Care Provider: 07/11/19 18:24 Patient admitted on 07/11/2019 for lethargy and shortness of breath Discharge Date: 07/17/19 - Discharge Diagnosis (1) Bradycardia Is this a current diagnosis for this admission?: Yes Summary: Patient's heart rate at time of discharge 65 and regular patient has remained between 57 and 78 his entire hospitalization. Average heart rate appears to be 67 (2) Chronic obstructive pulmonary disease Is this a current diagnosis for this admission?: Yes Summary: Patient has a history of COPD and in fact was in the hospital in [place] next week 2 months just days before being admitted here he was in the hospital in [place] for MRSA bacteremia. X-ray on admission was suspicious for pneumonia Patient uses Symbicort and albuterol at home patient had to be placed on BiPAP through the emergency room ever he was switched to high flow nasal cannula oxygen and this was gradually weaned off prior to to discharge. It was determined however the patient will need oxygen at home and this was set up by discharge planning (3) GERD (gastroesophageal reflux disease) Is this a current diagnosis for this admission?: Yes Summary: Patient has a history of GERD while in the hospital was taking Protonix 40 mg daily and actually was on this medicine prior to admission. Patient had no complaints of GERD while in the hospital (4) Hypertension Is this a current diagnosis for this admission?: Yes Summary: Patient's blood pressure on admission was low at 79/54, however within 24 hours pressure had gone up systolic being in the 1 teens and diastolic being in the 70s. For the last 24 hours prior to discharge blood pressure remained in the 130/70 (5) Pneumonia Is this a current diagnosis for this admission?: Yes Summary: On admission chest x-ray showed borderline cardiomegaly and cannot exclude pulmonary edema also likely left lower lobe pneumonia. On 823 there is increasing basilar airspace disease with persistent asymmetric airspace disease in the left upper lobe small bilateral pleural effusions however clinically the patient was improving on IV vancomycin and cefepime. At the time of discharge patient was sent out on p.o. Zithromax 500 mg p.o. daily x5 days. At the time of discharge patient's O2 sats 95% on 2 L nasal cannula - Additional Information Resuscitation Status: Full Code Discharge Diet: As Tolerated Discharge Activity: Balance Activity w/Rest, No Driving, Energy Conservation, Slowly Increase Activity Prescriptions: Verapamil HCl [Calan Sr 120 mg Tablet.sa] 120 mg PO Q12 15 Days #30 tablet.sa Tamsulosin HCl [Flomax 0.4 mg Cap.sr] 0.4 mg PO PCSUPPER 14 Days #14 cap.sr.24h Oxycodone HCl [Oxy-Ir 5 mg Tablet] 10 mg PO Q4HP PRN #10 tablet PRN Reason: Oxycodone HCl/Acetaminophen [Percocet 10-325 mg Tablet] 1 each PO Q8HP PRN #10 PRN Reason: Severe Pain Azithromycin [Zithromax Inj 500 mg Vial] 500 mg IV QPM 5 Days #5 vial Home Medications: Albuterol Sulfate [Proair HFA Inhalation Aerosol 8.5 gm MDI] 2 puff IH QIDP PRN 07/12/19 Amiodarone HCl [Cordarone 200 mg Tablet] 200 mg PO DAILY 07/12/19 Apixaban [Eliquis 5 mg Tablet] 5 mg PO BID 07/12/19 Budesonide/Formoterol Fumarate [Symbicort HFA 160-4.5 mcg Inhaler 6 gm] 2 puff IH Q12 07/12/19 Chlorpromazine HCl [Thorazine 25 mg Tablet] 25 mg PO TIDP PRN 07/12/19 Digoxin [Lanoxin 0.25 mg Tablet] 0.25 mg PO DAILY 07/12/19 Ferrous Sulfate [Feosol 325 mg Tablet] 325 mg PO BIDBS 07/12/19 Folic Acid [Folvite 1 mg Tablet] 1 mg PO DAILY 07/12/19 Gabapentin [Neurontin 300 mg Capsule] 300 mg PO BID 07/12/19 Lactobacillus Acidophilus [Probiotic Acidophilus] 2 each PO DAILY 07/12/19 Losartan Potassium [Cozaar 100 mg Tablet] 100 mg PO DAILY 07/12/19 Multivitamin [Tab-A-Ronni (Multiple Vitamin) Tablet] 1 tab PO DAILY 07/12/19 Pantoprazole Sodium [Protonix [address] Tablet] 40 mg PO Q6AM 07/12/19 Thiamine HCl [Thiamine 100 mg Tablet] 100 mg PO DAILY 07/12/19 Venlafaxine HCl ER [Effexor Xr 75 mg Cap.sr] 75 mg PO DAILY 07/12/19 Amiodarone HCl [Cordarone 200 mg Tablet] 200 mg PO DAILY tablet 07/17/19 Apixaban [Eliquis 5 mg Tablet] 5 mg PO BID tablet 07/17/19 Azithromycin [Zithromax Inj 500 mg Vial] 500 mg IV QPM 5 Days #5 vial 07/17/19 Ferrous Sulfate [Feosol 325 mg Tablet] 325 mg PO BIDBS tablet 07/17/19 Fluticasone/Vilanterol [Breo 200-25 Mcg Ellipta 14 Dose/Dpi] 1 inh IH DAILY inhaler 07/17/19 Folic Acid [Folvite 1 mg Tablet] 1 mg PO DAILY tablet 07/17/19 Gabapentin [Neurontin 300 mg Capsule] 300 mg PO Q12 capsule 07/17/19 Lactobacillus Acidophilus [Bacid 250 mg Tablet] 500 mg PO DAILY tab 07/17/19 Multivitamin [Tab-A-Ronni (Multiple Vitamin) Tablet] 1 tab PO DAILY tablet 07/17/19 Oxycodone HCl [Oxy-Ir 5 mg Tablet] 10 mg PO Q4HP PRN #10 tablet 07/17/19 Oxycodone HCl/Acetaminophen [Percocet 10-325 mg Tablet] 1 each PO Q8HP PRN #10 07/17/19 Tamsulosin HCl [Flomax 0.4 mg Cap.sr] 0.4 mg PO PCSUPPER 14 Days #14 cap.sr.24h 07/17/19 Venlafaxine HCl ER [Effexor Xr 75 mg Cap.sr] 75 mg PO DAILY cap.sr.24h 07/17/19 Verapamil HCl [Calan Sr 120 mg Tablet.sa] 120 mg PO Q12 15 Days #30 tablet.sa 07/17/19 History of Present Illness History of Present Illness: RUMA VAUGHAN is a 58 year old male who was admitted to the hospital for increased generalized weakness, increased cough as well as shaking Hospital Course Hospital Course: In the emergency room the differential diagnosis was hyperkalemia, bradycardia, hypoxemia, pneumonia, sepsis or to coming to this emergency room patient had been lysed for 2 months in [place] and was just discharged home 3 days ago. When he was in [place] he was being treated for pneumonia as well as sepsis the daughter who brings him in now states that for the last 3 days he has had decreased activity as well as increased shortness of breath patient also had a low oxygen saturation of approximately 80% on room air. Systolic blood pressure was 79 Patient was started on broad-spectrum antibiotics based on BiPAP patient was also given nebulizer treatments as well as IV Solu-Medrol every 8 hours Blood cultures as well as urine culture showed no growth in 5 days. With hydration as well as IV antibiotics patient improved patient went from BiPAP to high flow oxygen was weaned down to nasal cannula 2 L. Patient was able to maintain his sats in the mid 90s on 2 L nasal cannula. Patient had home oxygen delivered on the day of discharge. Patient's daughter takes care of the patient was in the room at the time of discharge had all of her questions answered. On admission patient's white count was 12,100 on discharge 5800. On admission BUN was 42 creatinine 1.66 on discharge BUN was 10 creatinine 0.62 Patient states he is feeling remarkably better asking to be discharged, in fact he was asking day before to be discharged although we were trying to maintain his O2 saturations and establish a baseline for his oxygen levels patient will need home O2. Patient be discharged on Zithromax 500 mg 1 tablet daily for 5 days. Patient will follow-up with his PCP. Patient is medically stable for discharge Physical Exam Vital Signs: Temp Pulse Resp BP Pulse Ox 97.6 F 67 16 130/71 H 95 07/17/19 15:40 07/17/19 15:40 07/17/19 15:40 07/17/19 15:40 07/17/19 15:40 General appearance: PRESENT: no acute distress, other - Talking in full sentences asking to be discharged home Respiratory exam: PRESENT: rales, other - Scattered Cardiovascular exam: PRESENT: RRR. ABSENT: diastolic murmur, rubs, systolic murmur Neurological exam: PRESENT: alert, awake, oriented to person, oriented to place, oriented to time, oriented to situation, CN II-XII grossly intact. ABSENT: motor sensory deficit Psychiatric exam: PRESENT: appropriate affect, normal mood, other - Patient in good spirits. ABSENT: homicidal ideation, suicidal ideation Results Laboratory Results: 07/16/19 14:20 07/16/19 13:08 07/11/19 07/11/19 16:49 20:55 Troponin I 0.012 < 0.012 Impressions: Chest X-Ray 07/15/19 00:00 IMPRESSION: Increasing basilar airspace disease. Persistent asymmetric airspace disease in the left upper lobe. This may represent multifocal pneumo marli or asymmetric edema or a combination of the two. There are small bilateral pleural effusions. Qualifiers - * PATIENT BEING DISCHARGED WITH ANY OF THE FOLLOWING DIAGNOSIS: No Acute Heart Failure - Is this a Heart Failure Patient?: No Plan Time Spent: Greater than 30 Minutes
== END 2019-07-17 16:30 | disposition home or self-care (01) | DRG 871 ==
LOC: ER 16:17 → EH 18:24 → ICU 07-12 01:25 → 3S 07-13 13:54
PROVIDERS: ADMIT Family Medicine; ATTEND Family Medicine
PROC: 06HM33Z Insertion of Infusion Device into Right Femoral Vein, Percutaneous Approach (ICD-10-PCS; principal; 2019-07-11)
DX: A41.9 Sepsis, unspecified organism (principal); J18.9 Pneumonia, unspecified organism; J96.01 Acute respiratory failure with hypoxia; N17.9 Acute kidney failure, unspecified; J44.0 Chronic obstructive pulmonary disease with (acute) lower respiratory infection; E87.5 Hyperkalemia; T44.7X5A Adverse effect of beta-adrenoreceptor antagonists, initial encounter; K21.9 Gastro-esophageal reflux disease without esophagitis; J44.9 Chronic obstructive pulmonary disease, unspecified; R00.1 Bradycardia, unspecified; I10 Essential (primary) hypertension; Z79.02 Long term (current) use of antithrombotics/antiplatelets; Z91.81 History of falling; Z86.14 Personal history of Methicillin resistant Staphylococcus aureus infection; Z79.51 Long term (current) use of inhaled steroids; Z79.899 Other long term (current) drug therapy; N13.9 Obstructive and reflux uropathy, unspecified; Z99.81 Dependence on supplemental oxygen
CPT/HCPCS: 36415; 71045; 80048; 80053; 80162; 81001; 82803; 83605; 84484; 85025; 85610; 87040; 87086; 93005; 93010; 94640; 94660; 96361; 96365; 96375; 99291; J0456; J0610; J0692; J1610; J1644; J3370; J3490; J7030; J7060; J7620; S0028

== ENCOUNTER 2019-08-12 09:31 | Emergency (ER) | payer MEDICAID ==
[2019-08-12] MEDS ORDERED: NORMAL SALINE 1000 ML 1,000 ML IV ONE (10:42)
[2019-08-12] MEDS ORDERED: MORPHINE SULFATE 10 MG/ML INJ IV ONE (10:42)
[2019-08-12] MEDS ORDERED: ONDANSETRON HCL INJ/PF 4 MG/2 ML SDV IV ONE (10:42)
--- NOTE | 2019-08-12 10:44 | ER Document Report ---
ED Medical Screen (RME) - General Chief Complaint: Abdominal Pain Stated Complaint: ABDOMINAL SWELLING Time Seen by Provider: 08/12/19 10:36 Primary Care Provider: TAMEKA DWYER DO [Primary Care Provider] - Follow up as needed Notes: Patient is a 4-year-old male who presents emergency department with a chief complaint of abdominal pain. His pain started about 3 weeks ago. The pain is in his right lower abdomen. He has history of an appendectomy and hernia repairs in the past. He currently takes Percocet, but the Percocet is not helping with his pain. He denies any black tarry stools or constipation. Last problem was today. Exam: very tender right lower abdomen. I have greeted and performed a rapid initial assessment of this patient. A comprehensive ED assessment and evaluation of the patient, analysis of test results and completion of medical decision making process will be conducted by an additional ED providers. TRAVEL OUTSIDE OF THE [place] IN LAST 30 DAYS: No - Related Data Allergies/Adverse Reactions: No Known Allergies Allergy (Verified 08/12/19 09:47) Past Medical History - Past Medical History Cardiac Medical History: Reports: Hx Atrial Fibrillation, Hx Hypertension Pulmonary Medical History: Reports: Hx COPD Renal/ Medical History: Denies: Hx Peritoneal Dialysis Past Surgical History: Reports: Hx Orthopedic Surgery - Immunizations Hx Diphtheria, Pertussis, Tetanus Vaccination: Yes Physical Exam - Vital signs Vitals: Temp Pulse Resp BP Pulse Ox 97.9 F 55 L 20 174/83 H 94 08/12/19 09:42 08/12/19 09:42 08/12/19 09:42 08/12/19 09:42 08/12/19 09:42 Course - Vital Signs Vital signs: Temp Pulse Resp BP Pulse Ox 97.9 F 55 L 20 174/83 H 94 08/12/19 09:42 08/12/19 09:42 08/12/19 09:42 08/12/19 09:42 08/12/19 09:42 Doctor's Discharge - Discharge Referrals: TAMEKA DWYER DO [Primary Care Provider] - Follow up as needed
[2019-08-12 11:49] LABS: ALBUMIN 3.8 g/dL (3.5-5.0); ALKALINE PHOSPHATASE 92 U/L (38-126); ANION GAP 5 (5-19); ASPARTATE AMINO TRANSFERASE 83 U/L (17-59); BILIRUBIN,DIRECT 0.1 mg/dL (0.0-0.4); BILIRUBIN,TOTAL 0.3 mg/dL (0.2-1.3); BLOOD UREA NITROGEN 16 mg/dL (7-20); CALCIUM 8.6 mg/dL (8.4-10.2); CARBON DIOXIDE 35 mmol/L (22-30); CHLORIDE 96 mmol/L (98-107); GLUCOSE 95 mg/dL (75-110); POTASSIUM 4.6 mmol/L (3.6-5.0); TOTAL PROTEIN 6.8 g/dL (6.3-8.2)
[2019-08-12 12:06] LABS: APPEARANCE,URINE CLEAR; BILIRUBIN,URINE NEGATIVE (NEGATIVE); COLOR,URINE YELLOW; GLUCOSE, URINE NEGATIVE (NEGATIVE); KETONES,URINE NEGATIVE (NEGATIVE); LEUKOCYTE ESTERASE,URINE NEGATIVE (NEGATIVE); NITRITE,URINE NEGATIVE (NEGATIVE); PROTEIN,URINE NEGATIVE (NEGATIVE); URINE SPECIFIC GRAVITY 1.016; UROBILINOGEN,URINE NEGATIVE mg/dL (<2.0)
[2019-08-12 12:28] LABS: HEMATOCRIT 33.8 % (37.9-51.0); HEMOGLOBIN 11.2 g/dL (13.5-17.0); MEAN CORPUSCULAR HEMOGLOBIN 30.1 pg (27.0-33.4); MEAN CORPUSCULAR HGB CONC 33.1 g/dL (32.0-36.0); PLATELET COUNT 171 10^3/uL (150-450); RED BLOOD COUNT 3.71 10^6/uL (4.35-5.55); RED CELL DISTRIBUTION WIDTH 21.9 % (11.5-14.0); WHITE BLOOD COUNT 6.1 10^3/uL (4.0-10.5)
--- NOTE | 2019-08-12 12:30 | RADIOLOGY REPORT (SQ) ---
EXAM DESCRIPTION: CT ABD/PELVIS WITH IV ONLY COMPLETED DATE/TIME: 08/12/2019 12:12 pm REASON FOR STUDY: abd pain COMPARISON: Chest radiograph 07/15/2019 TECHNIQUE: CT scan of the abdomen and pelvis performed using helical scanning technique with dynamic intravenous contrast injection. No oral contrast. Images reviewed with lung, soft tissue, and bone windows. Reconstructed coronal and sagittal MPR images reviewed. Delayed images for evaluation of the urinary system also acquired. All images stored on PACS. All CT scanners at this facility use dose modulation, iterative reconstruction, and/or weight based d osing when appropriate to reduce radiation dose to as low as reasonably achievable (ALARA). [facility]: Dose Right [facility]: CareDose [facility]: Dose Right [facility]: Teradose 4D [facility]: Atilekt CONTRAST TYPE AND DOSE: contrast/concentration: Isovue 350.00 mg/ml; Total Contrast Delivered: 85.0 ml; Total Saline Delivered: 67.0 ml RENAL FUNCTION: BUN 16; creatinine 0.81 RADIATION DOSE: CT Rad equipment meets quality standard of care and radiation dose reduction techniq ues were employed. CTDIvol: 6.3 - 8.8 mGy. DLP: 761 mGy-cm.. LIMITATIONS: None. FINDINGS: LOWER CHEST: Bilateral (right greater than left) pleural effusions with resultant compress brigitte atelectasis of the adjacent lung parenchyma. LIVER: Normal size. No masses. No dilated ducts. SPLEEN: Normal size. No focal lesions. PANCREAS: No masses. No significant calcifications. No adjacent inflammation or peripancreatic fluid collections. Pancreatic duct not dilated. GALLBLADDER: No identified stones by CT criteria. No inflammatory changes to suggest cholecystitis. ADRENAL GLANDS: No significant masses or asymmetry. RIGHT KIDNEY AND URETER: No solid masses. 2 subcentimeter hypoattenuating foci within the cortex lik lanette represent small renal cysts. . No significant calcifications. No hydronephrosis or hydrouret er. LEFT KIDNEY AND URETER: No solid masses. No significant calcifications. No hydronephrosis or hydr oureter. AORTA AND VESSELS: No aneurysm. No dissection. Renal arteries, SMA, celiac without stenosis. RETROPERITONEUM: No retroperitoneal adenopathy, hemorrhage or masses. BOWEL AND PERITONEAL CAVITY: A small amount of free fluid is seen within the pelvic cul-de-sac. The an opacified bowel demonstrates scattered colonic diverticula without focal inflammatory changes. Th e small bowel appears grossly normal. . APPENDIX: Surgically absent. PELVIS: No pelvic masses. The bladder appears normal. ABDOMINAL WALL: Small fat containing inguinal hernias are demonstrated. BONES: Severe degenerative changes at the thoracolumbar junction with a markedly irregular appearance of the 2012 vertebral body which appears sclerotic with endplate irregularities. This may be on the basis of previous trauma or discitis. OTHER: No other significant finding. IMPRESSION: A small amount of free fluid seen within the pelvis is a nonspecific finding. No additi onal evidence of acute intra-abdominal infectious/ inflammatory process. Bilateral pleural effusions . TECHNICAL DOCUMENTATION: JOB ID: [id number] Quality ID # [id number]: Final reports with documentation of one or more dose reduction techniques (e.g., Au tomated exposure control, adjustment of the mA and/or kV according to patient size, use of iterative reconstruction technique) 2010 [employer]- All Rights Reserved Reading location - IP/workstation name: [email or web address]
[2019-08-12 12:33] LABS: MEAN CORPUSCULAR VOLUME 91 fl (80-97)
--- NOTE | 2019-08-12 12:49 | ER Document Report ---
Entered by AGUSTINA THOMPSON SCRIBE 08/12/19 1235 Acting as scribe for:CRISTIAN COHN MD ED GI/ - General Chief Complaint: Abdominal Pain Stated Complaint: ABDOMINAL SWELLING Time Seen by Provider: 08/12/19 10:36 Primary Care Provider: TAMEKA DWYER DO [Primary Care Provider] - Follow up as needed Mode of Arrival: Ambulatory Information source: Patient Notes: Patient is a 58-year-old male who presents to the emergency department today with complaints of a 3-week history of abdominal swelling with associated pain. Patient states that when he first noticed the swelling, it was very mild and caused no pain or any other symptoms. Patient states it has progressed since onset to the point that now he feels like he "cannot even drink a glass of water" because of feeling so bloated. Patient states he has been having normal bowel movements throughout the last few weeks. Patient is on 5 L of home oxygen due to extensive smoking history. Patient denies a history of CHF. TRAVEL OUTSIDE OF THE [place] IN LAST 30 DAYS: No - Related Data Allergies/Adverse Reactions: No Known Allergies Allergy (Verified 08/12/19 09:47) Past Medical History - General Information source: Patient - Social History Smoking Status: Current Every Day Smoker Cigarette use (# per day): Yes Frequency of alcohol use: Occasional Drug Abuse: Marijuana Lives with: Family Family History: Reviewed & Not Pertinent Patient has suicidal ideation: No Patient has homicidal ideation: No - Past Medical History Cardiac Medical History: Reports: Hx Atrial Fibrillation, Hx Hypertension Pulmonary Medical History: Reports: Hx COPD Past Surgical History: Reports: Hx Abdominal Surgery - BILATERAL INGUINAL HERNIA REPAIR, Hx Appendectomy, Hx Orthopedic Surgery - L elbow, Hx Tonsillectomy - Immunizations Hx Diphtheria, Pertussis, Tetanus Vaccination: Yes Review of Systems - Review of Systems Constitutional: No symptoms reported EENT: No symptoms reported Cardiovascular: No symptoms reported Respiratory: No symptoms reported Gastrointestinal: See HPI, Abdomen distended, Abdominal pain Genitourinary: No symptoms reported Male Genitourinary: No symptoms reported Musculoskeletal: No symptoms reported Skin: No symptoms reported Hematologic/Lymphatic: No symptoms reported Neurological/Psychological: No symptoms reported -: Yes All other systems reviewed and negative Physical Exam - Vital signs Vitals: Temp Pulse Resp BP Pulse Ox 97.9 F 55 L 20 174/83 H 94 08/12/19 09:42 08/12/19 09:42 08/12/19 09:42 08/12/19 09:42 08/12/19 09:42 - Notes Notes: Physical Exam: General: Alert, appears well. HEENT: Normocephalic. Atraumatic. PERRL. Extraocular movements intact. Oropharynx clear. Neck: Supple. Non-tender. Respiratory: No respiratory distress. Some rhonchi and minimal wheezing bilaterally with forced cough consistent with extensive smoking history. Cardiovascular: Irregularly irregular. Abdominal: Abdomen is mostly resonant to percuss. Large bulging area located predominately on the right side of the abdomen. this area is very tender with palpation. Normal Bowel Sounds. Back: No gross abnormalities. Extremities: Moves all four extremities. Upper extremities: Normal inspection. Normal ROM. Lower extremities: Normal inspection. No edema. Normal ROM. Neurological: Normal cognition. AAOx4. Normal speech. Psychological: Normal affect. Normal Mood. Skin: Warm. Dry. Normal color. Course - Vital Signs Vital signs: Temp Pulse Resp BP Pulse Ox 97.9 F 55 L 20 174/83 H 94 08/12/19 09:42 08/12/19 09:42 08/12/19 09:42 08/12/19 09:42 08/12/19 09:42 - Laboratory Result Diagrams: 08/12/19 12:15 08/12/19 11:10 Laboratory results interpreted by me: 08/12/19 08/12/19 11:10 12:15 RBC 3.71 L Hgb 11.2 L Hct 33.8 L RDW 21.9 H Sodium 135.9 L Chloride 96 L Carbon Dioxide 35 H AST 83 H - Diagnostic Test Radiology reviewed: Image reviewed - CT scan was unremarkable other than a large fecal load in the right colon and proximal transverse colon. This corresponds to the mass palpated in his abdomen that was causing his discomfort. The distal transverse colon and left colon are all distended with gas but there is very little stool in that portion of the colon. Discharge - Discharge Clinical Impression: Constipation Qualifiers: Constipation type: unspecified constipation type Qualified Code(s): K59.00 - Constipation, unspecified Abdominal pain Qualifiers: Abdominal location: right upper quadrant Qualified Code(s): R10.11 - Right upper quadrant pain Condition: Stable Disposition: HOME, SELF-CARE Additional Instructions: Constipation Constipation is a common problem. It is especially likely as you get older. Constipation is a common cause of abdominal pain, but sometimes causes no symptoms at all. Causes of constipation include certain medications, dehydration, diets, inactivity, and low-fiber intake. Rarely, it can be a symptom of underlying disease. The physician has evaluated you for this. Avoid constipation by eating a diet high in fiber, fruits, and vegetables. Drink plenty of liquids. Get regular exercise. If possible, avoid constipating medicines like narcotic pain medication. Some vitamin tablets can cause constipation. Stool softeners may be needed for difficult cases. An excellent stool softener is Konsyl which is available at [employer], and [employer]. Just add a teaspoon to a glass of pineapple or orange juice daily or twice a day if needed. Laxatives are useful for occasional constipation. You should use them only when necessary. Too-frequent use can make your bowels dependent on them. Some over the counter laxatives available without prescription are: Milk of Magnesia, 1-2 tablespoons twice a day Dulcolax, 5 mg pill or 10 mg suppository. Citrate of Magnesia, 4-5 ounces a day for a day or two For acute constipation, Fleet's Enemas and Dulcolax suppositories are helpful. 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 Your bowel may become dependant on them. You do not need to have a bowel movement every day. Many people do fine with a bowel movement every three or four days. You should call your doctor or return for re-evaluation if you pass blood in the stool, or if you develop fever or increasing abdominal pain. Your constipation appears to be on the right side of your abdomen and this is the area that enemas will not help. You should take MiraLAX once every day for the next week or more. You should drink plenty of fluids throughout the day in the evening every day. Drink 4 or 5 ounces of magnesium citrate once daily until your bowels start moving. Unfortunately, pain medication will make your constipation problem worse. Follow-up with your primary care provider if not improving. RETURN TO THE EMERGENCY ROOM IF ANY NEW OR WORSENING SYMPTOMS. Referrals: TAMEKA DWYER, [Primary Care Provider] - Follow up as needed Lexieibe Attestation: 08/12/19 13:16 I personally performed the services described in the documentation, reviewed and edited the documentation which was dictated to the scribe in my presence, and it accurately records my words and actions. I personally performed the services described in the documentation, reviewed and edited the documentation which was dictated to the scribe in my presence, and it accurately records my words and actions.
[2019-08-12 12:54] LABS: ABSOLUTE LYMPHOCYTES# (MANUAL) 2.2 10^3/uL (0.5-4.7); ABSOLUTE MONOCYTES # (MANUAL) 0.7 10^3/uL (0.1-1.4); BASOPHILS % (MANUAL) 1 % (0-2); EOSINOPHILS % (MANUAL) 6 % (0-6); LYMPHOCYTES % (MANUAL) 32 % (13-45); MONOCYTES % (MANUAL) 11 % (3-13); NUCLEATED RED BLOOD CELLS 1 /100 WBC (0); SEGMENTED NEUTROPHILS % (MAN) 46 % (42-78); TOTAL CELLS COUNTED 100
[2019-08-12 12:56] LABS: ANISOCYTOSIS 2+; POLYCHROMASIA SLIGHT
[2019-08-12 12:57] LABS: PLATELET COMMENT ADEQUATE
[2019-08-12] MEDS ORDERED: MAGNESIUM CITRATE 296 ML BOTTLE PO ONE (13:15)
[2019-08-12 13:30] VITALS: BP 166/94
== END 2019-08-12 13:42 | disposition home or self-care (01) ==
LOC: ER 09:31
DX: K59.00 Constipation, unspecified (principal); R10.11 Right upper quadrant pain; R19.00 Intra-abdominal and pelvic swelling, mass and lump, unspecified site; Z99.81 Dependence on supplemental oxygen; F17.210 Nicotine dependence, cigarettes, uncomplicated; I10 Essential (primary) hypertension; J44.9 Chronic obstructive pulmonary disease, unspecified
CPT/HCPCS: 99284; 96361; 96374; 96375; 36415; 83690; 85025; 80053; 81001; 74177; J3490; J2270; J2405; J7030

== ENCOUNTER 2019-08-29 15:13 | Emergency (ER) | payer MEDICAID ==
[2019-08-29] MEDS ORDERED: ASPIRIN 81 MG TABLET, CHEWABLE PO ONE (16:05)
--- NOTE | 2019-08-29 16:09 | ER Document Report ---
ED Medical Screen (RME) - General Chief Complaint: Shortness Of Breath Stated Complaint: TROUBLE BREATHING Time Seen by Provider: 08/29/19 16:05 Primary Care Provider: TAMEKA DWYER DO [Primary Care Provider] - Follow up as needed Mode of Arrival: Wheelchair Information source: Patient Notes: 58-year-old male presented to ED for complaint of shortness of breath. He states his pmp certified project manager sent him to the emergency room to get worked up for cardiac shortness of breath and CHF. He states he smokes 5 to 6 cigarettes a day drinks weekly smokes pot is a history of COPD high blood pressure and cholesterol. He states his pmp certified project manager says he has too much swelling and edema she needs to have work-up for this. Patient is alert and oriented respirations regular nonlabored. I have greeted and performed a rapid initial assessment of this patient. A comprehensive ED assessment and evaluation of the patient, analysis of test results and completion of medical decision making process will be conducted by an additional ED providers. TRAVEL OUTSIDE OF THE [place] IN LAST 30 DAYS: No - Related Data Allergies/Adverse Reactions: No Known Allergies Allergy (Verified 08/12/19 09:47) Past Medical History - Past Medical History Cardiac Medical History: Reports: Hx Atrial Fibrillation, Hx Hypertension Pulmonary Medical History: Reports: Hx COPD Renal/ Medical History: Denies: Hx Peritoneal Dialysis Past Surgical History: Reports: Hx Abdominal Surgery - BILATERAL INGUINAL HERNIA REPAIR, Hx Appendectomy, Hx Orthopedic Surgery - L elbow, Hx Tonsillectomy - Immunizations Hx Diphtheria, Pertussis, Tetanus Vaccination: Yes Physical Exam - Vital signs Vitals: Temp Pulse Resp BP Pulse Ox 98.6 F 59 L 16 164/84 H 96 08/29/19 15:21 08/29/19 15:21 08/29/19 15:21 08/29/19 15:21 08/29/19 15:21 Course - Vital Signs Vital signs: Temp Pulse Resp BP Pulse Ox 98.6 F 59 L 16 164/84 H 96 08/29/19 15:21 08/29/19 15:21 08/29/19 15:21 08/29/19 15:21 08/29/19 15:21 Doctor's Discharge - Discharge Referrals: TAMEKA DWYER DO [Primary Care Provider] - Follow up as needed
[2019-08-29 17:51] LABS: APPEARANCE,URINE CLEAR; BILIRUBIN,URINE NEGATIVE (NEGATIVE); COLOR,URINE YELLOW; GLUCOSE, URINE NEGATIVE (NEGATIVE); KETONES,URINE NEGATIVE (NEGATIVE); LEUKOCYTE ESTERASE,URINE NEGATIVE (NEGATIVE); NITRITE,URINE NEGATIVE (NEGATIVE); PROTEIN,URINE NEGATIVE (NEGATIVE); URINE SPECIFIC GRAVITY 1.019; UROBILINOGEN,URINE NEGATIVE mg/dL (<2.0)
--- NOTE | 2019-08-29 18:15 | EKG REPORT ---
SEVERITY:- BORDERLINE ECG - SINUS RHYTHM BORDERLINE R WAVE PROGRESSION, ANTERIOR LEADS , CONSIDER OLD ANTERIOR LA : Confirmed by: Master Horton MD 29-Aug-2019 18:08:28
--- NOTE | 2019-08-29 18:58 | RADIOLOGY REPORT (SQ) ---
EXAM DESCRIPTION: CHEST 2 VIEWS COMPLETED DATE/TIME: 08/29/2019 6:46 pm REASON FOR STUDY: Short of breath COMPARISON: 07/15/2019 EXAM PARAMETERS: NUMBER OF VIEWS: two views TECHNIQUE: Digital Frontal and Lateral radiographic views of the chest acquired. RADIATION DOSE: NA LIMITATIONS: none FINDINGS: LUNGS AND PLEURA: Minimal basilar opacities. Small basilar effusions. No pneumothorax. MEDIASTINUM AND HILAR STRUCTURES: No masses or contour abnormalities. HEART AND VASCULAR STRUCTURES: Heart normal size. No evidence for failure. BONES: Multiple be alert fractures. HARDWARE: None in the chest. OTHER: No other significant finding. IMPRESSION: Basilar opacities and small bilateral pleural effusions. Appearance overall is improved over the previous study. TECHNICAL DOCUMENTATION: JOB ID: [id number] [employer]- All Rights Reserved Reading location - IP/workstation name: [email or web address]
[2019-08-29 19:23] LABS: HEMATOCRIT 37.1 % (37.9-51.0); HEMOGLOBIN 12.4 g/dL (13.5-17.0); MEAN CORPUSCULAR HEMOGLOBIN 30.9 pg (27.0-33.4); MEAN CORPUSCULAR HGB CONC 33.5 g/dL (32.0-36.0); MEAN CORPUSCULAR VOLUME 92 fl (80-97); PLATELET COUNT 246 10^3/uL (150-450); RED BLOOD COUNT 4.02 10^6/uL (4.35-5.55); RED CELL DISTRIBUTION WIDTH 20.6 % (11.5-14.0); WHITE BLOOD COUNT 5.1 10^3/uL (4.0-10.5)
[2019-08-29 19:35] LABS: INTERNATIONAL RATION (INR) 0.96; PROTHROMBIN TIME 12.8 SEC (11.4-15.4)
[2019-08-29 19:36] LABS: PARTIAL THROMBOPLASTIN TIME 35.9 SEC (23.5-35.8)
[2019-08-29 19:38] LABS: ALBUMIN 4.2 g/dL (3.5-5.0); ALKALINE PHOSPHATASE 99 U/L (38-126); ANION GAP 8 (5-19); ASPARTATE AMINO TRANSFERASE 156 U/L (17-59); BILIRUBIN,DIRECT 0.2 mg/dL (0.0-0.4); BILIRUBIN,TOTAL 0.3 mg/dL (0.2-1.3); BLOOD UREA NITROGEN 21 mg/dL (7-20); CALCIUM 8.9 mg/dL (8.4-10.2); CARBON DIOXIDE 29 mmol/L (22-30); CHLORIDE 101 mmol/L (98-107); CREATINE KINASE 283 U/L (55-170); GLUCOSE 82 mg/dL (75-110); POTASSIUM 4.7 mmol/L (3.6-5.0); TOTAL PROTEIN 7.6 g/dL (6.3-8.2)
[2019-08-29 19:46] LABS: ABSOLUTE MONOCYTES # (MANUAL) 0.5 10^3/uL (0.1-1.4); BASOPHILS % (MANUAL) 1 % (0-2); EOSINOPHILS % (MANUAL) 7 % (0-6); LYMPHOCYTES % (MANUAL) 37 % (13-45); MONOCYTES % (MANUAL) 10 % (3-13); SEGMENTED NEUTROPHILS % (MAN) 43 % (42-78); TOTAL CELLS COUNTED 100
[2019-08-29 19:47] LABS: ANISOCYTOSIS 2+; OVALOCYTES SLIGHT; PLATELET COMMENT ADEQUATE
[2019-08-29 19:50] LABS: CREATINE KINASE MB 5.35 ng/mL (<4.55); NT PRO BNP 156 pg/mL (5-900)
[2019-08-29 19:53] LABS: TROPONIN I < 0.012 ng/mL
--- NOTE | 2019-08-29 21:17 | ER Document Report ---
ED Respiratory Problem - General Chief Complaint: Shortness Of Breath Stated Complaint: TROUBLE BREATHING Time Seen by Provider: 08/29/19 21:17 Primary Care Provider: TAMEKA DWYER DO [Primary Care Provider] - Follow up as needed Mode of Arrival: Wheelchair Information source: Patient Notes: HISTORY OF PRESENT ILLNESS: Patient is a 58-year-old male with a past medical history of COPD requiring 6 L of oxygen by nasal cannula who presents with increasing cough with difficulty breathing for the past several days. Location: Chest Onset: Several days ago Alleviation: None Provocation: Cough, congestion Quality: Shortness of breath Radiation: None Severity: Moderate at worst, currently mild Timing: Persistent, not improving History of CAD: None Associated symptoms: Denies fevers or chills, reports mild increase in cough with increase in clear sputum production, no nausea or vomiting, no chest pain REVIEW OF SYSTEMS: CONSTITUTIONAL : Denies fever or chills, no sweats. Denies recent illness. EENT: Denies eye, ear, throat, or mouth pain or symptoms. Denies nasal or sinus congestion. CARDIOVASCULAR: Denies chest pain. Denies swelling of the legs. RESPIRATORY: Positive for cough and shortness of breath. Positive for wheezing. GASTROINTESTINAL: Denies abdominal pain. Denies nausea, vomiting, or diarrhea. Denies constipation. GENITOURINARY: Denies difficulty urinating, painful urination, burning, frequency, or blood in urine. MUSCULOSKELETAL: Denies neck or back pain or joint pain or swelling. SKIN: Denies rash or skin lesions. HEMATOLOGIC : Denies easy bruising or bleeding. LYMPHATIC: Denies swollen, enlarged glands. NEUROLOGICAL: Denies altered mental status or loss of consciousness. Denies headache. Denies weakness or paralysis or loss of use of either side. Denies problems with gait or speech. Denies sensory or motor loss. PSYCHIATRIC: Denies anxiety or stress or depression. All other systems reviewed and negative. PHYSICAL EXAMINATION: GENERAL: Chronically ill-appearing, well-nourished and in no acute distress. HEAD: Atraumatic, normocephalic. No scalp deformity, depression, or crepitance. EYES: Pupils are 3 mm and equal/round/reactive to light, extraocular movements intact, sclera anicteric, conjunctiva are normal. ENT: Nares patent bilaterally, oropharynx. Moist mucous membranes. No tonsil hypertrophy. NECK: Normal range of motion, supple without lymphadenopathy. LUNGS: Breath sounds present, equal, and distant bilaterally. No wheezes, rales, or rhonchi. HEART: Regular rate and rhythm without murmurs, rubs, or gallops. 2+ peripheral pulses. Normal capillary refill. ABDOMEN: Soft, nontender, nondistended. Normoactive bowel sounds. No guarding, no rebound. No masses appreciated. BACK: Normal contour, no midline tenderness. Rectal exam deferred. GENITAL/PELVIC: Deferred. EXTREMITIES: Normal range of motion, no pitting or edema. No cyanosis. NEUROLOGICAL: No focal neurological deficits. Moves all extremities spontaneously and on command. PSYCH: Normal mood, normal affect. No suicidal thoughts/ideations. No homicidal thoughts/ideations. No hallucinations. SKIN: Warm, dry, normal turgor, no rashes or lesions noted. ASSESSMENT AND PLAN: This patient is a 58-year-old male who presents with mild increase in cough and difficulty breathing, no known sick contacts, exam that is overall benign appearing. 1. Will obtain labs, cardiac enzymes, BNP, chest x-ray, and reassess. 2. Will consider treatment for COPD exacerbation versus acute bronchitis as indicated. TRAVEL OUTSIDE OF THE [place] IN LAST 30 DAYS: No - HPI Patient complains to provider of: COPD, Short of breath Onset: Last week Duration: Continuous Quality of pain: Achy Severity: Mild Pain Level: 2 Context: Hx COPD, Smoker Short of Breath: Mild Cough: Nonproductive Sputum amount: Scant Associated symptoms: Congestion, Cough, Wheezing Similar symptoms previously: Yes Recently seen / treated by doctor: Yes - Related Data Allergies/Adverse Reactions: No Known Allergies Allergy (Verified 08/12/19 09:47) Past Medical History - General Information source: Patient - Social History Smoking Status: Current Every Day Smoker Frequency of alcohol use: Occasional Drug Abuse: Marijuana Lives with: Family Family History: Reviewed & Not Pertinent Patient has suicidal ideation: No Patient has homicidal ideation: No - Past Medical History Cardiac Medical History: Reports: Hx Atrial Fibrillation, Hx Hypertension Pulmonary Medical History: Reports: Hx COPD EENT Medical History: Reports: None Neurological Medical History: Reports: None Endocrine Medical History: Reports: None Renal/ Medical History: Reports: None. Denies: Hx Peritoneal Dialysis Malignancy Medical History: Reports None GI Medical History: Reports: None Musculoskeletal Medical History: Reports None Skin Medical History: Reports None Psychiatric Medical History: Reports: None Traumatic Medical History: Reports: None Infectious Medical History: Reports: None Past Surgical History: Reports: Hx Abdominal Surgery - BILATERAL INGUINAL HERNIA REPAIR, Hx Appendectomy, Hx Orthopedic Surgery - L elbow, Hx Tonsillectomy - Immunizations Hx Diphtheria, Pertussis, Tetanus Vaccination: Yes Review of Systems - Review of Systems Constitutional: No symptoms reported EENT: No symptoms reported Cardiovascular: No symptoms reported Respiratory: See HPI, Cough, Short of breath, Wheezing Gastrointestinal: No symptoms reported Genitourinary: No symptoms reported Male Genitourinary: No symptoms reported Musculoskeletal: No symptoms reported Skin: No symptoms reported Hematologic/Lymphatic: No symptoms reported Neurological/Psychological: No symptoms reported -: Yes All other systems reviewed and negative Physical Exam - Vital signs Vitals: Temp Pulse Resp BP Pulse Ox 98.6 F 59 L 16 164/84 H 96 08/29/19 15:21 08/29/19 15:21 08/29/19 15:21 08/29/19 15:21 08/29/19 15:21 Interpretation: Normal Course - Re-evaluation Re-evalutation: 08/29/19 22:53 Chest x-ray shows bibasilar pleural effusions with questionable developing infection. Blood work shows mild elevation of BNP with normal renal function, normal white blood cell count, negative cardiac enzymes. Exam reveals the patient to be nontoxic-appearing. He was given oral Lasix with his normal oxycodone for pain control. Will discharge the patient home with strict return precautions and follow-up with primary care. All results were explained to and discussed with the patient, and all questions addressed and answered. The patient voices both understanding and agreeing with the plan. - Vital Signs Vital signs: Temp Pulse Resp BP Pulse Ox 98.6 F 56 L 18 150/82 H 96 08/29/19 15:21 08/30/19 00:32 08/30/19 00:32 08/30/19 00:32 08/30/19 00:32 - Laboratory Result Diagrams: 08/29/19 18:52 08/29/19 18:52 Laboratory results interpreted by me: 08/29/19 08/29/19 08/29/19 16:10 18:52 18:52 RBC 4.02 L Hgb 12.4 L Hct 37.1 L RDW 20.6 H Eosinophils % (Manual) 7 H APTT 35.9 H BUN AST Creatine Kinase CK-MB (CK-2) TSH Urine Ascorbic Acid 40 H 08/29/19 08/29/19 08/29/19 18:52 18:52 18:52 RBC Hgb Hct RDW Eosinophils % (Manual) APTT BUN 21 H AST 156 H Creatine Kinase 283 H CK-MB (CK-2) 5.35 H TSH 69.50 H Urine Ascorbic Acid - Diagnostic Test Radiology reviewed: Image reviewed, Reports reviewed - EKG Interpretation by Me EKG shows normal: Sinus rhythm Rate: Normal Rhythm: NSR Cache/QRS: No: Right axis deviation, Left axis deviation, RBBB, LBBB, IVCD, LAHB/LAFB, LPHB/LPFB, Bifasicular block Voltage: No: Increased voltage, Consistant with LVH, Decreased voltage, Throughout, Limb leads P Waves: No: HOLLY, LAE, Absent, AV Dissociation, Other Heart block present: No: 1st Degree, Mobitz 1, Mobitz 2, CHB (3rd degree block) When compared to previous EKG there are: No significant change Discharge - Discharge Clinical Impression: Peripheral edema Chronic obstructive pulmonary disease Qualifiers: COPD type: chronic bronchitis Chronic bronchitis type: unspecified Qualified Code(s): J42 - Unspecified chronic bronchitis Condition: Good Disposition: HOME, SELF-CARE Instructions: Chronic Obstructive Lung Disease ([facility]), Edema, Peripheral ([facility]) Additional Instructions: You have been evaluated in the Emergency Department for swelling in your legs as well as cough and trouble breathing, most likely related to your COPD. While here, you had blood work that was at your baseline and it is now safe to be dis charged home. Please follow-up with your primary physician as instructed in one week to be rechecked. Return to the Emergency Department if you experience chest pain, increasing swelling of your legs, the inability to urinate, worsening breathing, or any other concerning symptoms. Prescriptions: Furosemide [Lasix 40 mg Tablet] 40 mg PO QAM #30 tablet Methylprednisolone [Medrol Dosepack (4 mg/Tab) 21 Tab/Dosepak] 4 mg PO ASDIR PRN #21 tab.ds.pk PRN Reason: Azithromycin [Zithromax 250 mg Tablet] 250 mg PO ASDIR PRN #6 tablet PRN Reason: Referrals: TAMEKA DWYER DO [Primary Care Provider] - Follow up as needed Print Language: Kyrgyz
[2019-08-29] MEDS ORDERED: OXYCODONE HCL IR 5 MG TABLET PO ONE (21:55)
[2019-08-29] MEDS ORDERED: FUROSEMIDE 40 MG TABLET PO ONE (21:55)
[2019-08-30 00:40] VITALS: BP 150/82
== END 2019-08-30 00:37 | disposition home or self-care (01) ==
LOC: ER 15:13
DX: J44.9 Chronic obstructive pulmonary disease, unspecified (principal); R06.02 Shortness of breath; R05 Cough; R09.81 Nasal congestion; R60.0 Localized edema; Z99.81 Dependence on supplemental oxygen; F17.200 Nicotine dependence, unspecified, uncomplicated; I10 Essential (primary) hypertension
CPT/HCPCS: 93005; 99285; 36415; 82553; 82550; 83735; 84443; 85025; 85610; 85730; 80053; 81001; 84484; 83880; 71046; 93010; J3490 ×2

== ENCOUNTER → 2019-09-02 | Outpatient (CLI) | payer MEDICAID ==
--- NOTE | 2019-09-02 17:28 | RADIOLOGY REPORT (SQ) ---
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 TECHNIQUE: Dynamic and static limon-scale images acquired of the thyroid gland. Selected additional c olor/power Doppler images recorded. All images stored to PACS. LIMITATIONS: None. FINDINGS: RIGHT LOBE: Normal size, 4.7 cm. Homogeneous echotexture. No solid mass. There is a 9 m m cyst in the midportion. LEFT LOBE: Normal size, 4.1 cm. Homogeneous echotexture. No solid mass. There is a 5 mm cyst in th e midportion of the lobe. ISTHMUS: Normal size, 3.3 mm. Homogeneous echotexture. No cystic or solid masses. OTHER: No other significant finding. IMPRESSION: A small cyst is present in each lobe. TIRADS 1 COMMENT: The [employer] (ACR) Thyroid Imaging Reporting And Data System (TI-RADS ) is an ultrasound feature based summed scoring system of risk categorization and management recommen dations for thyroid nodules. TI-RADS assessment categories are as follows: 0 - Incomplete exam: Additional imaging or comparison to prior examinations recommended. 1. - Benign: Fine-needle aspiration or follow-up not routinely recommended in the absence of clinical change. 2. - Not suspicious: Fine-needle aspiration or follow-up not routinely recommended in the absence of clinical change. 3. - Mildly suspicious: Fine-needle aspiration recommended if greater than or equal to 2.5 cm in size . Ultrasound follow-up recommended if greater than or equal to 1.5 cm in size. 4. - Moderately suspicious: Fine-needle aspiration recommended if greater than or equal to 1.5 cm in size. Ultrasound follow-up recommended if greater than or equal to 1.0 cm in size. 5. - Highly suspicious: Fine-needle aspiration recommended if greater than or equal to 1.0 cm in size . Ultrasound follow-up recommended if greater than or equal to 0.5 cm in size. TECHNICAL DOCUMENTATION: JOB ID: [id number] [employer]- All Rights Reserved Reading location - IP/workstation name: [email or web address]
== END ==
LOC: RAD 16:22
PROVIDERS: ATTEND Physician Assistant
DX: E03.9 Hypothyroidism, unspecified (principal); R94.6 Abnormal results of thyroid function studies; Z79.899 Other long term (current) drug therapy
CPT/HCPCS: 76536

== ENCOUNTER → 2019-09-09 | Outpatient (CLI) | payer MEDICAID ==
--- NOTE | 2019-09-09 14:42 | RADIOLOGY REPORT (SQ) ---
EXAM DESCRIPTION: CT CHEST WITHOUT COMPLETED DATE/TIME: 09/09/2019 2:22 pm REASON FOR STUDY: OTHER NONSPECIFIC ABNORMAL FINDING OF LUNG FIELD (R91.8) R91.8 OTHER NONSPECIFIC ABNORMAL FINDING OF LUNG FIELD COMPARISON: None. TECHNIQUE: CT scan performed of the chest without intravenous contrast. Images reviewed with lung, soft tissue and bone windows. Reconstructed coronal and sagittal MPR images reviewed. All images st ored on PACS. All CT scanners at this facility use dose modulation, iterative reconstruction, and/or weight based d osing when appropriate to reduce radiation dose to as low as reasonably achievable (ALARA). [facility]: Dose Right [facility]: CareDose [facility]: Dose Right [facility]: Teradose 4D [facility]: Sharely[employer]Us RADIATION DOSE: CT Rad equipment meets quality standard of care and radiation dose reduction techniq ues were employed. CTDIvol: 6.0 mGy. DLP: 255 mGy-cm. mGy. LIMITATIONS: No technical limitations. FINDINGS: LUNGS AND PLEURA: Mild scattered parenchymal scarring. No masses, infiltrates, or pneumot horax. No pleural effusions or pleural calcifications. HILAR AND MEDIASTINAL STRUCTURES: No identified masses or abnormal nodes. No obvious aneurysm. HEART AND VASCULAR STRUCTURES: No aneurysm. No pericardial effusion. UPPER ABDOMEN: No significant findings. Limited exam. THYROID AND OTHER SOFT TISSUES: No masses. No adenopathy. BONES: Old left rib and left clavicle fracture. Markedly sclerotic appearance of the T12 vertebra wi th endplate irregularities at T11-T12 and T12-L1. HARDWARE: None in the chest. OTHER: No other significant findings. IMPRESSION: 1. MILD SCATTERED PARENCHYMAL SCARRING IN THE LUNGS. NO OTHER SIGNIFICANT FINDING ON NON-CONTRASTED CHEST CT. 2. MARKEDLY SCLEROTIC T12 VERTEBRA WITH ENDPLATE IRREGULARITIES AT T11-T12 AND T12-L1. THIS WAS ALSO PRESENT ON PRIOR ABDOMINAL CT (08/12/2019). DIFFERENTIAL INCLUDES TRAUMA OR CHRONIC DISCITIS. TECHNICAL DOCUMENTATION: JOB ID: [id number] Quality ID # [id number]: Final reports with documentation of one or more dose reduction techniques (e.g., Au tomated exposure control, adjustment of the mA and/or kV according to patient size, use of iterative reconstruction technique) 2010 [employer]- All Rights Reserved Reading location - IP/workstation name: [email or web address]
--- NOTE | 2019-09-09 15:24 | RADIOLOGY REPORT (SQ) ---
EXAM DESCRIPTION: KNEE BILATERAL 1-2 VIEWS COMPLETED DATE/TIME: 09/09/2019 1:59 pm REASON FOR STUDY: PAIN IN UNSPECIFIED KNEE (M25.277) R91.8 OTHER NONSPECIFIC ABNORMAL FINDING OF PHYLLIS NG FIELD COMPARISON: None. NUMBER OF VIEWS: Two views. TECHNIQUE: AP and lateral standing bilateral knees. LIMITATIONS: None. FINDINGS: MINERALIZATION: Normal. RIGHT KNEE BONES: No acute fracture. No worrisome bone lesions. MEDIAL COMPARTMENT: Marginal osteophytes. Significant joint space narrowing. No chondrocalcinosis . LATERAL COMPARTMENT: No significant osteophytes. No joint space narrowing. No chondrocalcinosis. PATELLOFEMORAL COMPARTMENT: Posterior patellar osteophytes are present. No joint space narrowing. No chondrocalcinosis. LEFT KNEE BONES: No acute fracture. No worrisome bone lesions. MEDIAL COMPARTMENT: Small marginal osteophytes. Significant joint space narrowing. No chondrocalc inosis. LATERAL COMPARTMENT: No significant osteophytes. No joint space narrowing. No chondrocalcinosis. PATELLOFEMORAL COMPARTMENT: Prominent posterior patellar and trochlear osteophytes. No joint space narrowing. No chondrocalcinosis. IMPRESSION: Degenerative joint disease in the medial and patellofemoral compartment of each knee, wi th the patellofemoral compartment involvement left more than right. TECHNICAL DOCUMENTATION: JOB ID: [id number] [employer]- All Rights Reserved Reading location - IP/workstation name: [email or web address]
== END ==
LOC: RAD 13:38
PROVIDERS: ATTEND Registered Nurse
DX: M17.0 Bilateral primary osteoarthritis of knee (principal); R91.8 Other nonspecific abnormal finding of lung field
CPT/HCPCS: 71250

== ENCOUNTER → 2019-09-14 | Outpatient (CLI) | payer MEDICAID ==
--- NOTE | 2019-09-14 14:13 | RADIOLOGY REPORT (SQ) ---
EXAM DESCRIPTION: NM WHOLE BODY BONE SCAN COMPLETED DATE/TIME: 09/14/2019 1:59 pm REASON FOR STUDY: (S22.080A)WEDGE COMPRESSION FRACTURE OF T11-T12 VERTEBRA, INIT S22.080A WEDGE COM PRESSION FRACTURE OF T11-T12 VERTEBRA, INI COMPARISON: CT chest dated 09/09/2019 RADIONUCLIDE AND DOSE: 21.0 millicuries Tc99m HDP. The route of agent administration: Intravenous. ADDITIONAL DRUGS AND DOSES: None. TECHNIQUE: Routine delayed images at 3 hour post radionuclide injection acquired of the bony skeleto n including anterior and posterior whole-body projections and additional focused images as needed. LIMITATIONS: None. FINDINGS: BONES: There is increase activity most intense at T12. There is increased uptake in T11 a nd L1 as well. As described on CT this could represent posttraumatic change. Underlying osteomyelit is cannot be excluded. KIDNEYS: Symmetric excretion without obstruction. OTHER: No other significant finding. IMPRESSION: Intense uptake at T12. Mild increased uptake at T11 and L1. COMMENT: Quality measure 147: Current bone scan is compared with any available plain radiographs, p rior bone scans, and CT/MRI. TECHNICAL DOCUMENTATION: JOB ID: [id number] [employer]- All Rights Reserved Reading location - IP/workstation name: [email or web address]
== END ==
LOC: RAD 09:23
PROVIDERS: ATTEND Nurse Practitioner Family
DX: S22.080A Wedge compression fracture of T11-T12 vertebra, initial encounter for closed fracture (principal); X58.XXXA Exposure to other specified factors, initial encounter
CPT/HCPCS: 78306; A9561; Q9969

== ENCOUNTER 2019-09-21 09:18 | Day surgery (SDC) | payer MEDICAID ==
[~2019-09-21 09:18] MED LIST: LIDOCAINE 2% INJ-PF (20 MG/ML) 10 ML AMPUL ONE; PROPOFOL INJ 200 MG/20 ML VIAL IV ONE
[2019-09-21] MEDS ORDERED: FENTANYL CITRATE INJ/PF 100 MCG/2 ML AMPUL IV PRN ×3 (10:53)
[2019-09-21] MEDS ORDERED: DIPHENHYDRAMINE HCL 50 MG/ML VIAL IV PRN (10:53)
[2019-09-21] MEDS ORDERED: PROMETHAZINE HCL INJ 25 MG/1 ML VIAL IV PRN (10:53)
[2019-09-21 11:05] LABS: INTERNATIONAL RATION (INR) 1.03; PROTHROMBIN TIME 13.6 SEC (11.4-15.4)
[2019-09-21 11:06] LABS: PARTIAL THROMBOPLASTIN TIME 31.4 SEC (23.5-35.8)
--- NOTE | 2019-09-21 12:03 | Operative Report ---
Operative Report DATE OF SURGERY: 09/21/19 Operative Report: The risks benefits and alternatives of the procedure explained to the patient in detail and informed consent is obtained.A GIF Olympus video scope was inserted into the patient's mouth and hypopharynx, the esophagus is identified intubated and insufflated, the scope was then advanced through the esophagus stomach and duodenum ,retroflexion maneuver is done ,the esophagus stomach and first and second portions of the duodenum examined. PREOPERATIVE DIAGNOSIS: Abdominal distention, dyspepsia POSTOPERATIVE DIAGNOSIS: Nodular gastritis status post biopsy without Helicobacter pylori OPERATION: EGD with biopsy SURGEON: NETTE MELENDEZ ANESTHESIA: LMAC TISSUE REMOVED OR ALTERED: As noted above. COMPLICATIONS: None. ESTIMATED BLOOD LOSS: None. INTRAOPERATIVE FINDINGS: As noted above. PROCEDURE: Patient tolerated the procedure well. No immediate postprocedure complications are noted. Patient is discharged in good condition. Discharge date 09/21/2019. Discharge diet: Regular. Discharge activity: Regular. 2 to 3-week follow-up to discuss findings. Patient is instructed to call the office or proceed to the emergency room should there be any further problems or questions. Wait on the pathology.
[2019-09-21 14:20] VITALS: BP 135/75
== END 2019-09-21 12:50 | disposition home or self-care (01) ==
LOC: OROUT 09:18
PROVIDERS: ATTEND Internal Medicine Gastroenterology
DX: K29.50 Unspecified chronic gastritis without bleeding (principal); I10 Essential (primary) hypertension; F17.210 Nicotine dependence, cigarettes, uncomplicated
CPT/HCPCS: 43239; 36415; 85610; 85730; 88305 ×2; J2704; J3490; 731

== ENCOUNTER → 2019-10-27 | Outpatient (CLI) | payer MEDICAID ==
[2019-10-27 10:41] LABS: HEMATOCRIT 38.6 % (37.9-51.0); MEAN CORPUSCULAR HEMOGLOBIN 32.4 pg (27.0-33.4); MEAN CORPUSCULAR HGB CONC 33.7 g/dL (32.0-36.0); MEAN CORPUSCULAR VOLUME 96 fl (80-97); PLATELET COUNT 246 10^3/uL (150-450); RED BLOOD COUNT 4.01 10^6/uL (4.35-5.55); RED CELL DISTRIBUTION WIDTH 15.5 % (11.5-14.0); WHITE BLOOD COUNT 8.3 10^3/uL (4.0-10.5)
[2019-10-27 10:51] LABS: APPEARANCE,URINE CLEAR; BILIRUBIN,URINE NEGATIVE (NEGATIVE); COLOR,URINE YELLOW; GLUCOSE, URINE NEGATIVE (NEGATIVE); KETONES,URINE NEGATIVE (NEGATIVE); LEUKOCYTE ESTERASE,URINE NEGATIVE (NEGATIVE); NITRITE,URINE NEGATIVE (NEGATIVE); PROTEIN,URINE NEGATIVE (NEGATIVE); URINE SPECIFIC GRAVITY 1.021; UROBILINOGEN,URINE NEGATIVE mg/dL (<2.0)
[2019-10-27 11:00] LABS: ALBUMIN 3.8 g/dL (3.5-5.0); ALKALINE PHOSPHATASE 92 U/L (38-126); ANION GAP 10 (5-19); ASPARTATE AMINO TRANSFERASE 44 U/L (17-59); BILIRUBIN,DIRECT 0.2 mg/dL (0.0-0.4); BILIRUBIN,TOTAL 0.3 mg/dL (0.2-1.3); BLOOD UREA NITROGEN 18 mg/dL (7-20); CALCIUM 8.7 mg/dL (8.4-10.2); CARBON DIOXIDE 32 mmol/L (22-30); CHLORIDE 103 mmol/L (98-107); GLUCOSE 118 mg/dL (75-110); POTASSIUM 4.3 mmol/L (3.6-5.0); TOTAL PROTEIN 7.2 g/dL (6.3-8.2)
== END ==
LOC: OD 09:43
PROVIDERS: ATTEND Physician Assistant
DX: I48.20 Chronic atrial fibrillation, unspecified (principal); R94.5 Abnormal results of liver function studies; Z79.01 Long term (current) use of anticoagulants
CPT/HCPCS: 36415; 80048; 80076; 81001; 82272; 85027; 85730

== ENCOUNTER 2019-12-09 08:39 | Day surgery (SDC) | payer MEDICAID ==
[2019-12-09 10:58] VITALS: BP 165/84
--- NOTE | 2019-12-09 17:07 | Operative Report ---
Operative Report DATE OF SURGERY: 12/09/19 Operative Report: The risk, benefits and alternatives of the procedure including the risk of bleeding, perforation requiring surgery I explained to the patient in detail and informed consent has been obtained. Patient is placed in a left, lateral decubital position. Timeout was called. Propofol medication is administered. Rectal examination is done which did not reveal any masses, tears or fissures. An Olympus videoscope was introduced into the patient's rectum. Scope was then carefully advanced all the way to the cecum. The cecum was identified by the usual anatomical landmarks including the ileocecal valve as well as the appendiceal office. Photodocumentation is obtained. Scope was then sequentially pulled back via the various segments of the colon including the ascending colon, hepatic flexure, transverse colon, splenic flexure, descending colon finally in to the rectosigmoid portions of the colon. Retroflexion maneuvers performed. The risks benefits and alternatives of the procedure explained to the patient in detail and informed consent is obtained.A GIF Olympus video scope was inserted into the patient's mouth and hypopharynx ,the esophagus is identified intubated and insufflated ,the scope was then advanced through the esophagus stomach and duodenum, retroflexion maneuver is done, the esophagus stomach and first and second portions of the duodenum examined PREOPERATIVE DIAGNOSIS: Blood in stool rule out GI bleeding POSTOPERATIVE DIAGNOSIS: right side Information status post biopsy. Gastritis status post biopsy OPERATION: Colonoscopy with biopsy. EGD with biopsy SURGEON: NETTE MELENDEZ ANESTHESIA: LMAC TISSUE REMOVED OR ALTERED: As noted above. COMPLICATIONS: None. ESTIMATED BLOOD LOSS: None. INTRAOPERATIVE FINDINGS: As noted above. PROCEDURE: Patient tolerated the procedure well. No immediate postprocedure complications are noted. Patient is discharged in good condition. Discharge date 12/09/2019. Discharge diet: Regular. Discharge activity: Regular. 2 to 3-week follow-up to discuss findings. No active source of GI bleeding is noted Can restart anticoagulation. Follow-up in office. Consider 5-year surveillance colonoscopy.
== END 2019-12-09 11:05 | disposition home or self-care (01) ==
LOC: END 08:39
PROVIDERS: ATTEND Internal Medicine Gastroenterology
DX: K29.50 Unspecified chronic gastritis without bleeding (principal); K52.9 Noninfective gastroenteritis and colitis, unspecified; K92.1 Melena; I10 Essential (primary) hypertension; J44.9 Chronic obstructive pulmonary disease, unspecified; I48.91 Unspecified atrial fibrillation; F17.210 Nicotine dependence, cigarettes, uncomplicated; Z86.14 Personal history of Methicillin resistant Staphylococcus aureus infection; Z79.01 Long term (current) use of anticoagulants; E07.9 Disorder of thyroid, unspecified
CPT/HCPCS: 43239; 45380; 88342 ×2; 88305 ×2; 00813; J2704; J3490; 813

== ENCOUNTER → 2019-12-20 | Outpatient (CLI) | payer MEDICAID ==
[~2019-12-20] MED LIST changes: -LIDOCAINE 2% INJ-PF (20 MG/ML) 10 ML AMPUL ONE; -PROPOFOL INJ 200 MG/20 ML VIAL IV ONE; +REGADENOSON INJ 0.4 MG/5 ML DISP.SYRIN IV ONE
--- NOTE | 2019-12-20 12:31 | DRAGON STRESS TEST REPORT ---
Pharmacological Myocardial Perfusion Imaging Procedure Performed: Rest/Stress - Single/Dual Isotope Cardiolite (SPECT) Imaging with IV Lexiscan stress and Gated SPECT Imaging. Indication: Chronic atrial fibrillation, chest pains. Clinical History: This 58 years old white male with CAD risk factors of smoking and hypertension, with chronic atrial fibrillation, needs work-up for coronary artery disease. Report: The patient received IV Lexiscan of 0.4 mg infused over 10 seconds. The resting heart rate was 80 and increased to 81 BPM at end infusion. The resting blood pressure was 128/74 and was 138/77 at end infusion. Patient had symptoms of feeling funny, but no chest pains. The resting 12-lead ECG showed 80 bpm, right axis deviation, poor R wave progression V1 to V3. At end infusion, there were no ST-T changes.. Myocardial perfusion imaging was performed at rest 60 minutes following the injection of 11.24 mCi of Cardiolite. 10 Seconds after injection, the patient was injected with 33.4 mCi of Cardiolite and flushed. Gated post- stress tomographic imaging was performed 60 minutes after stress. Findings: The overall quality of the study is good.. Left ventricular cavity is noted to be normal on the rest and stress studies studies. There is no evidence of abnormal transient Ischemic Dilatation of the L.V. SPECT images showed no reversible ischemia, there is a small fixed perfusion defect in the apical inferior wall, and a moderate size fixed perfusion defect in the basal inferoseptal wall and basal inferior wall suggesting scar. The left ventricular ejection fraction was 62%. Impression: Myocardial perfusion imaging is abnormal. There areas of fixed perfusion defects in the apical inferior wall, and basal inferoseptal and basal inferior wall suggesting infarction in in these locations.. Overall left ventricular systolic function was normal at 62% with regional wall motion abnormalities (as noted above). No prior study for comparison. Recommendations: Continue optimal medical management. MTDD
== END ==
LOC: RAD 06:41
PROVIDERS: ATTEND Internal Medicine Cardiovascular Disease
DX: I48.20 Chronic atrial fibrillation, unspecified (principal)
CPT/HCPCS: 93017; 78452; A9500; J2785; Q9969

== ENCOUNTER → 2020-01-20 | Outpatient (CLI) | payer MEDICAID ==
--- NOTE | 2020-01-20 13:55 | RADIOLOGY REPORT (SQ) ---
EXAM DESCRIPTION: CT CHEST WITHOUT COMPLETED DATE/TIME: 01/20/2020 12:49 pm REASON FOR STUDY: R91.1 SOLITARY PULMONARY NODULE R91.1 SOLITARY PULMONARY NODULE COMPARISON: 09/09/2019 TECHNIQUE: CT scan performed of the chest without intravenous contrast. Images reviewed with lung, soft tissue and bone windows. Reconstructed coronal and sagittal MPR images reviewed. All images st ored on PACS. All CT scanners at this facility use dose modulation, iterative reconstruction, and/or weight based d osing when appropriate to reduce radiation dose to as low as reasonably achievable (ALARA). [facility]: Dose Right [facility]: CareDose [facility]: Dose Right [facility]: Teradose 4D [facility]: Smart [employer] RADIATION DOSE: CT Rad equipment meets quality standard of care and radiation dose reduction techniq ues were employed. CTDIvol: 7.3 mGy. DLP: 304 mGy-cm. mGy. LIMITATIONS: No technical limitations. FINDINGS: LUNGS AND PLEURA: Mild pleural/ parenchymal scarring. No infiltrate, effusion, or mass. HILAR AND MEDIASTINAL STRUCTURES: No identified masses or abnormal nodes. No obvious aneurysm. HEART AND VASCULAR STRUCTURES: No aneurysm. No pericardial effusion. UPPER ABDOMEN: No significant findings. Limited exam. THYROID AND OTHER SOFT TISSUES: No masses. No adenopathy. BONES: Stable changes at T11 and T12 S seen on the prior study. Is there any clinical evidence of di scitis at T11-12? HARDWARE: None in the chest. OTHER: No other significant findings. IMPRESSION: There is pleural/parenchymal scarring most prominent adjacent to the fissure in the left upper lobe posteriorly. No solid component is appreciated within this at this time. No definable m ass is present. Stable osseous findings. TECHNICAL DOCUMENTATION: JOB ID: [id number] Quality ID # [id number]: Final reports with documentation of one or more dose reduction techniques (e.g., Au tomated exposure control, adjustment of the mA and/or kV according to patient size, use of iterative reconstruction technique) 2010 [employer]- All Rights Reserved Reading location - IP/workstation name: [email or web address]
== END ==
LOC: RAD 12:38
PROVIDERS: ATTEND Registered Nurse
DX: R91.1 Solitary pulmonary nodule (principal)
CPT/HCPCS: 71250

== ENCOUNTER → 2020-03-08 | Outpatient (CLI) | payer MEDICAID ==
[2020-03-08 13:31] LABS: APPEARANCE,URINE CLEAR; BILIRUBIN,URINE NEGATIVE (NEGATIVE); COLOR,URINE YELLOW; GLUCOSE, URINE NEGATIVE (NEGATIVE); KETONES,URINE NEGATIVE (NEGATIVE); LEUKOCYTE ESTERASE,URINE NEGATIVE (NEGATIVE); NITRITE,URINE NEGATIVE (NEGATIVE); PROTEIN,URINE NEGATIVE (NEGATIVE); URINE SPECIFIC GRAVITY 1.009; UROBILINOGEN,URINE NEGATIVE mg/dL (<2.0)
[2020-03-08 13:31] LABS: HEMATOCRIT 43.9 % (37.9-51.0); HEMOGLOBIN 15.1 g/dL (13.5-17.0); MEAN CORPUSCULAR HEMOGLOBIN 32.8 pg (27.0-33.4); MEAN CORPUSCULAR HGB CONC 34.4 g/dL (32.0-36.0); MEAN CORPUSCULAR VOLUME 96 fl (80-97); PLATELET COUNT 214 10^3/uL (150-450); RED CELL DISTRIBUTION WIDTH 13.4 % (11.5-14.0)
[2020-03-08 13:55] LABS: ALKALINE PHOSPHATASE 101 U/L (38-126); ANION GAP 5 (5-19); ASPARTATE AMINO TRANSFERASE 46 U/L (17-59); BILIRUBIN,DIRECT 0.1 mg/dL (0.0-0.4); BILIRUBIN,TOTAL 0.6 mg/dL (0.2-1.3); BLOOD UREA NITROGEN 20 mg/dL (7-20); CALCIUM 9.2 mg/dL (8.4-10.2); CARBON DIOXIDE 35 mmol/L (22-30); CHLORIDE 102 mmol/L (98-107); GLUCOSE 106 mg/dL (75-110); POTASSIUM 5.3 mmol/L (3.6-5.0)
[2020-03-08 14:09] LABS: FREE T3 3.86 pg/mL (2.77-5.27); FREE T4 (FREE THYROXINE) 1.6 ng/dL (0.78-2.19)
[2020-03-08 14:23] LABS: THYROID STIMULATING HORMONE 4.14 uIU/mL (0.47-4.68)
[2020-03-08 17:31] LABS: CHOLESTEROL 149.69 mg/dL (0-200); TRIGLYCERIDES 94 mg/dL (<150)
[2020-03-08 17:42] LABS: DIRECT LDL 86 mg/dL (<100)
== END ==
LOC: OD 12:38
PROVIDERS: ATTEND Physician Assistant
DX: E78.5 Hyperlipidemia, unspecified (principal); R93.1 Abnormal findings on diagnostic imaging of heart and coronary circulation; E03.9 Hypothyroidism, unspecified; F41.1 Generalized anxiety disorder; I48.20 Chronic atrial fibrillation, unspecified; R94.5 Abnormal results of liver function studies; Z79.01 Long term (current) use of anticoagulants
CPT/HCPCS: 36415; 80048; 80061; 80076; 81001; 82272; 84439; 84443; 84481; 85027; 85730

== ENCOUNTER → 2020-03-12 | Outpatient (CLI) | payer MEDICAID ==
[2020-03-12 16:04] LABS: ANION GAP 6 (5-19); BLOOD UREA NITROGEN 18 mg/dL (7-20); CALCIUM 8.9 mg/dL (8.4-10.2); CARBON DIOXIDE 31 mmol/L (22-30); CHLORIDE 102 mmol/L (98-107); GLUCOSE 114 mg/dL (75-110); POTASSIUM 4.9 mmol/L (3.6-5.0)
== END ==
LOC: OD 14:32
PROVIDERS: ATTEND Physician Assistant
DX: E87.5 Hyperkalemia (principal)
CPT/HCPCS: 36415; 80048

== ENCOUNTER 2020-03-14 14:51 | Emergency (ER) | payer MEDICAID ==
[2020-03-14 16:13] LABS: ABSOLUTE BASOPHILS # (AUTO) 0.1 10^3/uL (0.0-0.2); ABSOLUTE MONOCYTES (AUTO) 0.8 10^3/uL (0.1-1.4); BASOPHILS % (AUTO) 0.9 % (0-2); EOSINOPHILS % (AUTO) 0.3 % (0-6); PLATELET COUNT 259 10^3/uL (150-450); TOTAL CELLS COUNTED % (AUTO) 100 %
[2020-03-14 16:27] LABS: ABSOLUTE LYMPHOCYTES (AUTO) 1.9 10^3/uL (0.5-4.7); HEMATOCRIT 40.2 % (37.9-51.0); HEMOGLOBIN 13.9 g/dL (13.5-17.0); LYMPHOCYTES % (AUTO) 23.9 % (13-45); MEAN CORPUSCULAR HEMOGLOBIN 33.1 pg (27.0-33.4); MEAN CORPUSCULAR HGB CONC 34.6 g/dL (32.0-36.0); MEAN CORPUSCULAR VOLUME 96 fl (80-97); MONOCYTES % (AUTO) 10.6 % (3-13); RED BLOOD COUNT 4.21 10^6/uL (4.35-5.55); RED CELL DISTRIBUTION WIDTH 13.3 % (11.5-14.0); SEGMENTED NEUTROPHILS % (AUTO) 64.3 % (42-78); WHITE BLOOD COUNT 7.8 10^3/uL (4.0-10.5)
--- NOTE | 2020-03-14 16:35 | RADIOLOGY REPORT (SQ) ---
EXAM DESCRIPTION: CHEST SINGLE VIEW IMAGES COMPLETED DATE/TIME: 03/14/2020 4:24 pm REASON FOR STUDY: shortness of breath COMPARISON: CT chest 07/12/2020 Chest 08/29/2019 EXAM PARAMETERS: NUMBER OF VIEWS: One view. TECHNIQUE: Single frontal radiographic view of the chest acquired. RADIATION DOSE: NA LIMITATIONS: None. FINDINGS: LUNGS AND PLEURA: No opacities, masses or pneumothorax. No pleural effusion. MEDIASTINUM AND HILAR STRUCTURES: No masses. Contour normal. HEART AND VASCULAR STRUCTURES: Heart normal in size. Normal vasculature. BONES: Old healed fractures of the bilateral hips, lower thoracic spine and left clavicle HARDWARE: None in the chest. OTHER: No other significant finding. IMPRESSION: NO ACUTE RADIOGRAPHIC FINDING IN THE CHEST. TECHNICAL DOCUMENTATION: JOB ID: [id number] [employer]- All Rights Reserved Reading location - IP/workstation name: [id number]
[2020-03-14 16:37] LABS: ALBUMIN 3.7 g/dL (3.5-5.0); ALKALINE PHOSPHATASE 91 U/L (38-126); ASPARTATE AMINO TRANSFERASE 32 U/L (17-59); BILIRUBIN,TOTAL 0.3 mg/dL (0.2-1.3); BLOOD UREA NITROGEN 20 mg/dL (7-20); CALCIUM 8.9 mg/dL (8.4-10.2); GLUCOSE 120 mg/dL (75-110); POTASSIUM 4.8 mmol/L (3.6-5.0); TOTAL PROTEIN 6.4 g/dL (6.3-8.2)
[2020-03-14 16:43] LABS: CARBON DIOXIDE 34 mmol/L (22-30); CHLORIDE 101 mmol/L (98-107)
[2020-03-14 16:45] LABS: ANION GAP 6 (5-19)
[2020-03-14 17:03] VITALS: BP 140/80
[2020-03-14] MEDS ORDERED: METHYLPREDNISOLONE INJ 125 MG/2 ML SDV IV ONE (17:39)
[2020-03-14] MEDS ORDERED: TERBUTALINE SULFATE INJ/PF 1 MG/1 ML SDV SUBCUT ONE (17:39)
[2020-03-14] MEDS ORDERED: MAGNESIUM SULFATE/D5W 1 GM/100 ML RTUPB IV SCH (17:45)
[2020-03-14 17:53] LABS: ARTERIAL BLOOD BASE EXCESS 3.6 mmol/L; ARTERIAL BLOOD FIO2 ROOM AIR; ARTERIAL BLOOD HCO3 30.1 mmol/L (20-24); ARTERIAL BLOOD O2 SATURATION 96.3 % (94-98); ARTERIAL BLOOD PCO2 53.2 mmHg (35-45); ARTERIAL BLOOD PH 7.37 (7.35-7.45); ARTERIAL BLOOD PO2 87.2 mmHg (80-100); ARTERIAL BLOOD TOTAL CO2 31.7 mmol/L (23-27)
--- NOTE | 2020-03-14 18:00 | ER Document Report ---
ED Respiratory Problem - General Chief Complaint: Shortness Of Breath Stated Complaint: COUGH/SHORTNESS OF BREATH Time Seen by Provider: 03/14/20 15:07 Primary Care Provider: TAMEKA DWYER DO [Primary Care Provider] - Follow up as needed Notes: Patient is a 59-year-old male with a history of COPD, oxygen dependent on 3 L nasal cannula, who presents the emergency department with a cough and shortness of breath. Patient was seen by his primary care provider and was started on steroids. His first dose of steroids was yesterday. Patient states that he does not feel like he is getting any better. Patient has a history of atrial fibrillation. He is controlled with medications. TRAVEL OUTSIDE OF THE [place] IN LAST 30 DAYS: No - Related Data Allergies/Adverse Reactions: No Known Allergies Allergy (Verified 08/12/19 09:47) Past Medical History - Social History Smoking Status: Current Every Day Smoker Chew tobacco use (# tins/day): No Frequency of alcohol use: None Drug Abuse: None Family History: CAD, Hypertension. denies: DM, Malignancy Patient has suicidal ideation: No Patient has homicidal ideation: No - Past Medical History Cardiac Medical History: Reports: Hx Atrial Fibrillation, Hx Hypertension Denies: Hx Coronary Artery Disease, Hx Heart Attack - ATRIAL FIB Pulmonary Medical History: Reports: Hx COPD, Hx Pneumonia Denies: Hx Asthma, Hx Bronchitis Neurological Medical History: Denies: Hx Cerebrovascular Accident, Hx Seizures Endocrine Medical History: Denies: Hx Diabetes Mellitus Type 1, Hx Diabetes Mellitus Type 2, Hx Hyperthyroidism, Hx Hypothyroidism Renal/ Medical History: Denies: Hx Peritoneal Dialysis GI Medical History: Denies: Hx Cirrhosis, Hx Crohn's Disease, Hx Hepatitis, Hx Ulcerative Colitis Musculoskeletal Medical History: Denies Hx Arthritis - CHRONIC BACK PAIN, DJD, RIGHT KNEE PAIN, Denies Hx Gout Skin Medical History: Denies Hx Eczema, Denies Hx Psoriasis Psychiatric Medical History: Reports: Hx Depression Infectious Medical History: Denies: Hx Hepatitis Past Surgical History: Reports: Hx Abdominal Surgery - BILATERAL INGUINAL HERNIA REPAIR, Hx Appendectomy, Hx Orthopedic Surgery - L elbow, Hx Tonsillectomy - Immunizations Hx Diphtheria, Pertussis, Tetanus Vaccination: Yes Physical Exam - Vital signs Vitals: Temp Pulse Resp BP Pulse Ox 98.6 F 77 20 137/74 H 97 03/14/20 14:58 03/14/20 14:58 03/14/20 14:58 03/14/20 14:58 03/14/20 14:58 Course - Re-evaluation Re-evalutation: 03/14/20 19:05 Patient states that he feels much better after receiving Solu-Medrol, magnesium, and terbutaline. Patient's lung sounds have improved with this treatment. Instructed the patient to continue his steroids. He is in agreement with this plan. He will follow-up with his primary care provider. I have very low suspicion for a pulmonary emboli. His chest x-ray is normal. Follow-up precau tions were given. Verbal discharge instructions were given to the patient. They verbalized understanding. They are stable for discharge. - Vital Signs Vital signs: Temp Pulse Resp BP Pulse Ox 98.6 F 77 14 140/80 H 100 03/14/20 15:42 03/14/20 14:58 03/14/20 18:00 03/14/20 16:37 03/14/20 18:00 - Laboratory Result Diagrams: 03/14/20 15:55 03/14/20 15:55 Laboratory results interpreted by me: 03/14/20 03/14/20 03/14/20 15:55 15:55 15:55 RBC 4.21 L Carbonic Acid ABG pCO2 ABG HCO3 ABG Total CO2 Carbon Dioxide 34 H Glucose 120 H NT-Pro-B Natriuret Pep 533 H 03/14/20 17:34 RBC Carbonic Acid 1.60 H ABG pCO2 53.2 H ABG HCO3 30.1 H ABG Total CO2 31.7 H Carbon Dioxide Glucose NT-Pro-B Natriuret Pep Discharge - Discharge Clinical Impression: COPD exacerbation, Shortness of breath, Cough Condition: Stable Disposition: HOME, SELF-CARE Additional Instructions: You are seen today in the emergency department for shortness of breath and a cough. Your chest x-ray is normal. Please continue the steroids given to you by your primary care provider. Follow-up with your primary care provider in regards to this visit. Referrals: TAMEKA DWYER DO [Primary Care Provider] - Follow up in 3-5 days
--- NOTE | 2020-03-15 09:58 | EKG REPORT ---
SEVERITY:- ABNORMAL ECG - SINUS RHYTHM BORDERLINE R WAVE PROGRESSION, ANTERIOR LEADS : Confirmed by: Leonel Michele 15-Mar-2020 09:57:22
== END 2020-03-14 19:29 | disposition home or self-care (01) ==
LOC: ER 14:51
DX: J44.1 Chronic obstructive pulmonary disease with (acute) exacerbation (principal); R06.02 Shortness of breath; R05 Cough; Z99.81 Dependence on supplemental oxygen; I48.91 Unspecified atrial fibrillation; F17.200 Nicotine dependence, unspecified, uncomplicated; I10 Essential (primary) hypertension
CPT/HCPCS: 93005; 36415; 82803; 85025; 80053; 83880; 71045; 93010; J2930; J3475; J3105; 96365; 96372; 96375; 99285

== ENCOUNTER → 2020-05-10 | Outpatient (CLI) | payer MEDICAID ==
[2020-05-10 16:25] LABS: HEMATOCRIT 41.5 % (37.9-51.0); HEMOGLOBIN 14.1 g/dL (13.5-17.0); MEAN CORPUSCULAR HEMOGLOBIN 32.3 pg (27.0-33.4); MEAN CORPUSCULAR HGB CONC 34.1 g/dL (32.0-36.0); MEAN CORPUSCULAR VOLUME 95 fl (80-97); PLATELET COUNT 273 10^3/uL (150-450); RED BLOOD COUNT 4.38 10^6/uL (4.35-5.55); RED CELL DISTRIBUTION WIDTH 13.4 % (11.5-14.0); WHITE BLOOD COUNT 6.7 10^3/uL (4.0-10.5)
[2020-05-10 16:31] LABS: APPEARANCE,URINE CLEAR; BILIRUBIN,URINE NEGATIVE (NEGATIVE); COLOR,URINE YELLOW; GLUCOSE, URINE NEGATIVE (NEGATIVE); KETONES,URINE NEGATIVE (NEGATIVE); LEUKOCYTE ESTERASE,URINE NEGATIVE (NEGATIVE); NITRITE,URINE NEGATIVE (NEGATIVE); PROTEIN,URINE NEGATIVE (NEGATIVE); URINE SPECIFIC GRAVITY 1.009; UROBILINOGEN,URINE NEGATIVE mg/dL (<2.0)
[2020-05-10 16:46] LABS: ALBUMIN 4.1 g/dL (3.5-5.0); ALKALINE PHOSPHATASE 175 U/L (38-126); ANION GAP 7 (5-19); ASPARTATE AMINO TRANSFERASE 49 U/L (17-59); BILIRUBIN,TOTAL 0.4 mg/dL (0.2-1.3); BLOOD UREA NITROGEN 33 mg/dL (7-20); CALCIUM 8.8 mg/dL (8.4-10.2); CARBON DIOXIDE 31 mmol/L (22-30); CHLORIDE 99 mmol/L (98-107); GLUCOSE 100 mg/dL (75-110); TOTAL PROTEIN 6.6 g/dL (6.3-8.2)
== END ==
LOC: OD 15:15
PROVIDERS: ATTEND Physician Assistant
DX: I48.20 Chronic atrial fibrillation, unspecified (principal); R94.5 Abnormal results of liver function studies; Z79.01 Long term (current) use of anticoagulants
CPT/HCPCS: 36415; 80048; 80076; 81001; 85027; 85730